=== PATIENT | female | born 1995 | race Caucasian/White ===

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

== ENCOUNTER 2017-01-13 13:00 | Outpatient (CLI) | payer BC, OTHER ==
[2017-01-13 14:13] VITALS: BP 108/63; PULSE 97; RESP 16; TEMP 98.2
--- NOTE | 2017-04-01 23:30 | P.MSEPDOC ---
Presenting Problems - Arrival Data Date of Arrival on Unit: 01/13/17 Time of Arrival on Unit: 13:00 Mode of Transport: Ambulatory Medical History - Information : 3 Para: 1 Term: 1 : 0 Abortions: Spontaneous or Elective: 1 Number of Living Children: 1 - Gestational Age Gestational Age by DANYEL (wks/days): 31 Weeks and 4 Days Vital Signs - Temperature Temperature: 98.2 F Temperature Source: Oral - Pulse Right Brachial Pulse Rate: 97 Pulse Assessment Method: Automatic Cuff - Respirations Respiratory Rate: 16 Oxygen Delivery Method: Room Air O2 Sat by Pulse Oximetry: 99 - Blood Pressure Right Arm Blood Pressure: 108/63 Blood Pressure Mean: 78 Blood Pressure Source: Automatic Cuff Medical Screen Scoring (Post) - Cervical Exam Dilation: 1-3 cm = 1 - Uterine Contractions Frequency: N/A Duration: N/A Intensity: N/A - Maternal Vital Signs Maternal Temperature: N/A Maternal Blood Pressure: N/A Signs of Preeclampsia: N/A Maternal Respirations: N/A - Pain Assessment Pain Scale Used: Numeric (1 - 10) Pain Intensity: 0 - Maternal Trauma Maternal Trauma: N/A - Assessment Heart Rate: 135 Heart Rate - NICHD Category: Category I (Normal) = 0 NST: Reactive Position: N/A - Total Score Total Score (Post): 1 - Post Treatment Level of Risk Post Treatment Level of Risk: Low (0-5) Physician Notification (Post) - Physician Notified Physician Notified Date: 01/13/17 Physician Notified Time: 13:45 Physician/Practitioner Notified:: denise Spoke With: denise New Order Received: Yes - Notification Comment Comment: reported pt visit to triage to r/o rom. amnisure negative, reactive nst , no contractions. pt may be discharged home . follow up thursday with dr horowitz as scheduled Disposition - Disposition OB Disposition: Discharge to home Discharge Date: 01/13/17 Discharge Time: 13:55 I agree with the RN Medical Screening Exam: Yes Risk & Benefit of care provided described in d/c instruction: Yes Diagnosis: FALSE LABOR BEFORE 37 COMPLETED WEEKS OF GEST, THIRD TRI
== END 2017-01-13 13:55 | disposition home or self-care (01) ==
LOC: FBPOP 13:00
PROVIDERS: ATTEND Obstetrics & Gynecology
DX: O47.03 False labor before 37 completed weeks of gestation, third trimester (principal); Z3A.31 31 weeks gestation of pregnancy
CPT/HCPCS: 59025; 84112; 99213

== ENCOUNTER 2017-01-29 17:57 | Outpatient (CLI) | payer BC, OTHER ==
[2017-01-29 18:54] VITALS: BP 133/63; PULSE 110; RESP 18; TEMP 97.5
--- NOTE | 2017-02-02 06:45 | P.MSEPDOC ---
Presenting Problems - Arrival Data Date of Arrival on Unit: 01/29/17 Time of Arrival on Unit: 17:57 Mode of Transport: Ambulatory - Complaint OB-Reason for Admission/Chief Complaint: Pain Comment: contractions and cramping Medical History - Information : 3 Para: 1 Term: 1 : 0 Abortions: Spontaneous or Elective: 1 Number of Living Children: 1 - Gestational Age Gestational Age by DANYEL (wks/days): 33 Weeks and 6 Days Review of Systems - Review of Systems Constitutional: No problems Breast: No problems ENT: No problems Cardiovascular: No problems Respiratory: No problems Gastrointestinal: No problems Genitourinary: No problems Musculoskeletal: No problems Neurological: No problems Skin: No problems Vital Signs - Temperature Temperature: 97.5 F Temperature Source: Temporal Artery Scan - Pulse Right Brachial Pulse Rate: 110 Pulse Assessment Method: Automatic Cuff - Respirations Respiratory Rate: 18 Oxygen Delivery Method: Room Air - Blood Pressure Right Arm Blood Pressure: 133/63 Blood Pressure Mean: 86 Blood Pressure Source: Automatic Cuff Medical Screen Scoring (Pre) - Cervical Exam Dilation: 1-3 cm = 1 Effacement: Exam Deferred Membranes: Intact - Uterine Contractions Frequency: N/A Duration: N/A Intensity: N/A - Maternal Vital Signs Maternal Temperature: N/A Maternal Blood Pressure: N/A Signs of Preeclampsia: N/A Maternal Respirations: N/A - Pain Assessment Pain Location and Character: Abdomen Pain Scale Used: Numeric (1 - 10) Pain Intensity: 4 Pain Description: *Acute Pain Radiation Location: none Pain Frequency: Intermittent Pain Duration: 2 Pain Duration Units: Days Pain Behavior: Vocalization - Maternal Trauma Maternal Trauma: N/A - Assessment Baseline FHR: 120 Heart Rate - NICHD Category: Category I (Normal) = 0 NST: Reactive Position: N/A Station: N/A - Total Score Total Score (Pre): 1 - Level of Risk Level of Risk: Low (0-5) Physician Notification (Pre) - Physician Notified Physician Notified Date: 01/29/17 Physician Notified Time: 19:34 Physician/Practitioner Notifed:: Dr. Humphries Spoke With: Dr. Humphries New Order Received: Yes - Notification Comment Comment: discharge pt home, follow up in office next week at scheduled appt Disposition - Disposition OB Disposition: Discharge to home, Written follow up instructions reviewed I agree with the RN Medical Screening Exam: Yes Risk & Benefit of care provided described in d/c instruction: Yes Diagnosis: FALSE LABOR BEFORE 37 COMPLETED WEEKS OF GEST, THIRD TRI
== END 2017-01-29 18:45 | disposition home or self-care (01) ==
LOC: FBPOP 17:57
PROVIDERS: ATTEND Obstetrics & Gynecology
DX: O47.03 False labor before 37 completed weeks of gestation, third trimester (principal); Z3A.33 33 weeks gestation of pregnancy
CPT/HCPCS: 59025; 99213

== ENCOUNTER 2017-02-26 08:01 | Outpatient (CLI) | payer BC, OTHER ==
[2017-02-26 09:17] VITALS: BP 113/65; PULSE 95; RESP 18; TEMP 97.6
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
== END 2017-02-26 09:15 | disposition home or self-care (01) ==
LOC: FBPOP 08:01
PROVIDERS: ATTEND Obstetrics & Gynecology
DX: O99.89 Other specified diseases and conditions complicating pregnancy, childbirth and the puerperium (principal); R52 Pain, unspecified; Z3A.37 37 weeks gestation of pregnancy
CPT/HCPCS: 59025; 99213

== ENCOUNTER 2017-03-03 23:04 | Outpatient (CLI) | payer BC, OTHER ==
[2017-03-03] MEDS ORDERED: LACTATED RINGERS 1,000 ML IV SCH (23:45)
[2017-03-04 00:22] LABS: Basophils % (A) 0 %; Eosinophils # (A) 0.1 k/uL (0-0.7); Eosinophils % (A) 1 %; HCT 32.5 % (34.0-46.0); HGB 10.1 gm/dL (11.4-16.0); Hypochromasia Moderate; Lymphocytes # (A) 1.3 k/uL (1.0-4.8); Lymphocytes % (A) 9 %; MCH 23.3 pg (25.0-35.0); MCHC 30.9 g/dL (31.0-37.0); MCV 75.4 fL (80.0-100.0); Mean Platelet Volume 9.2; Microcytosis Slight; Monocytes # (A) 0.7 k/uL (0-1.0); Monocytes % (A) 5 %; Neutrophils % (A) 84 %; Platelet Count 205 k/uL (150-450); Poikilocytosis Slight; RBC 4.31 m/uL (3.80-5.40); RDW 14.8 % (11.5-15.5); WBC 14.3 k/uL (4.0-11.0)
[2017-03-04 00:32] LABS: ALT 26 U/L (9-52); AST 20 U/L (14-36); Albumin 3.6 g/dL (3.5-5.0); Alkaline Phosphatase 239 U/L (38-126); Anion Gap 10 mmol/L; Blood Urea Nitrogen 5 mg/dL (7-17); Calcium 9.8 mg/dL (8.4-10.2); Carbon Dioxide 23 mmol/L (22-30); Chloride 105 mmol/L (98-107); Glucose 72 mg/dL (74-99); Potassium 3.7 mmol/L (3.5-5.1); Sodium 138 mmol/L (137-145); Total Bilirubin 0.6 mg/dL (0.2-1.3); Total Protein 6.3 g/dL (6.3-8.2)
[2017-03-04 02:25] VITALS: BP 131/70; PULSE 127; RESP 18; TEMP 98.2
--- NOTE | 2017-03-06 11:00 | P.MSEPDOC ---
Presenting Problems - Arrival Data Date of Arrival on Unit: 03/03/17 Time of Arrival on Unit: 23:04 Mode of Transport: Ambulatory - Complaint OB-Reason for Admission/Chief Complaint: Dizziness Comment: dizziness and R leg swelling Medical History - Information : 3 Para: 1 Term: 1 : 0 Abortions: Spontaneous or Elective: 1 Number of Living Children: 1 - Gestational Age Gestational Age by DANYEL (wks/days): 38 Weeks and 5 Days Review of Systems - Review of Systems Constitutional: No problems Breast: No problems ENT: No problems Cardiovascular: Irregular heartbeat Respiratory: No problems Gastrointestinal: No problems Genitourinary: No problems Musculoskeletal: No problems Neurological: Dizziness Skin: No problems Comment: tachycardic Vital Signs - Temperature Temperature: 98.2 F Temperature Source: Temporal Artery Scan - Pulse Right Supine Brachial Pulse Rate: 127 Pulse Assessment Method: Automatic Cuff - Respirations Respiratory Rate: 18 Oxygen Delivery Method: Room Air O2 Sat by Pulse Oximetry: 99 - Blood Pressure Right Arm Supine Blood Pressure: 131/70 Blood Pressure Mean: 90 Blood Pressure Source: Automatic Cuff Medical Screen Scoring (Pre) - Cervical Exam Dilation: 1-3 cm = 1 Membranes: Intact - Uterine Contractions Frequency: > or = 36 weeks =2 Duration: > 40 seconds = 2 - Pain Assessment Pain Location and Character: Abdomen Pain Scale Used: Numeric (1 - 10) Pain Intensity: 1 Pain Management Goal: 1 Pain Description: Cramping Pain Radiation Location: none Pain Frequency: Intermittent Pain Duration: 2 Pain Duration Units: Hours Pain Behavior: None Exhibited Effects of Pain: none Pain Aggravating Factors: Activity Non-Pharmacological Interventions: Inactivity - Assessment Baseline FHR: 135 Heart Rate - NICHD Category: Category I (Normal) = 0 NST: Reactive - Total Score Total Score (Pre): 5 - Level of Risk Level of Risk: Low (0-5) Physician Notification (Pre) - Physician Notified Physician Notified Date: 03/03/17 Physician Notified Time: 23:50 Physician/Practitioner Notifed:: Dr Siddiqui Spoke With: Dr Siddiqui New Order Received: Yes (Lab orders with IV and EKG) Physician Notification (Post) - Physician Notified Physician Notified Date: 03/04/17 Physician Notified Time: 01:35 Physician/Practitioner Notified:: Dr Siddiqui Spoke With: Dr Siddiqui New Order Received: Yes - Notification Comment Comment: Discharge to home Disposition - Disposition OB Disposition: Discharge to home Discharge Date: 03/04/17 Discharge Time: 01:35 I agree with the RN Medical Screening Exam: Yes Risk & Benefit of care provided described in d/c instruction: Yes Diagnosis: RELATED CONDITIONS, UNSPECIFIED, THIRD TRIMESTER (leg swelling)
== END 2017-03-04 01:35 | disposition home or self-care (01) ==
LOC: FBPOP 23:04
PROVIDERS: ATTEND Obstetrics & Gynecology
DX: O26.93 Pregnancy related conditions, unspecified, third trimester (principal); Z3A.38 38 weeks gestation of pregnancy
CPT/HCPCS: 59025; 80053; 84443; 85025; 96360; 96361; 99214

== ENCOUNTER → 2017-10-23 | Outpatient (CLI) | payer BC, OTHER ==
[2017-10-23 15:01] LABS: Basophils % (A) 0 %; Eosinophils # (A) 0.3 k/uL (0-0.7); Eosinophils % (A) 5 %; HCT 41.7 % (34.0-46.0); HGB 13.9 gm/dL (11.4-16.0); Lymphocytes # (A) 2.2 k/uL (1.0-4.8); Lymphocytes % (A) 32 %; MCH 27.2 pg (25.0-35.0); MCHC 33.4 g/dL (31.0-37.0); MCV 81.3 fL (80.0-100.0); Mean Platelet Volume 7.8; Monocytes # (A) 0.5 k/uL (0-1.0); Monocytes % (A) 6 %; Neutrophils # (A) 3.8 k/uL (1.3-7.7); Neutrophils % (A) 55 %; Platelet Count 217 k/uL (150-450); RBC 5.13 m/uL (3.80-5.40); RDW 12.8 % (11.5-15.5)
[2017-10-23 15:05] LABS: ALT 32 U/L (9-52); AST 22 U/L (14-36); Albumin 4.7 g/dL (3.5-5.0); Alkaline Phosphatase 76 U/L (38-126); Anion Gap 11 mmol/L; Blood Urea Nitrogen 13 mg/dL (7-17); Calcium 9.8 mg/dL (8.4-10.2); Carbon Dioxide 26 mmol/L (22-30); Chloride 105 mmol/L (98-107); Cholesterol 116 mg/dL (<200); Glucose 79 mg/dL (74-99); HDL Cholesterol 57 mg/dL (40-60); LDL Cholesterol,Calculated 51 mg/dL (0-99); Potassium 4.2 mmol/L (3.5-5.1); Sodium 142 mmol/L (137-145); Total Bilirubin 0.9 mg/dL (0.2-1.3); Total Protein 7.4 g/dL (6.3-8.2); Triglycerides 39 mg/dL (<150)
== END | disposition home or self-care (01) ==
LOC: LABWHC1 14:32
DX: Z00.00 Encounter for general adult medical examination without abnormal findings (principal)
CPT/HCPCS: 36415; 80053; 80061; 82306; 84443; 85025

== ENCOUNTER → 2018-01-22 | Outpatient (CLI) | payer BC, OTHER ==
[2018-01-22 15:27] LABS: Basophils % (A) 0 %; Eosinophils # (A) 0.3 k/uL (0-0.7); Eosinophils % (A) 5 %; HGB 12.7 gm/dL (11.4-16.0); Lymphocytes # (A) 2.1 k/uL (1.0-4.8); Lymphocytes % (A) 31 %; MCH 28.8 pg (25.0-35.0); MCHC 34.4 g/dL (31.0-37.0); MCV 83.6 fL (80.0-100.0); Mean Platelet Volume 8.9; Monocytes # (A) 0.5 k/uL (0-1.0); Monocytes % (A) 7 %; Neutrophils # (A) 3.8 k/uL (1.3-7.7); Neutrophils % (A) 55 %; Platelet Count 204 k/uL (150-450); RBC 4.42 m/uL (3.80-5.40); WBC 6.9 k/uL (4.0-11.0)
== END ==
LOC: LABWHC1 15:10
PROVIDERS: ATTEND Dermatology
DX: L30.9 Dermatitis, unspecified (principal)
CPT/HCPCS: 36415; 85025

== ENCOUNTER 2018-02-21 04:55 | Emergency (ER) | payer BC, OTHER ==
--- NOTE | 2018-02-21 06:18 | ED ---
General Adult HPI - General Chief complaint: Extremity Problem,Nontraumatic Stated complaint: rt arm numbness Time Seen by Provider: 02/21/18 06:03 Source: patient, RN notes reviewed Mode of arrival: ambulatory Limitations: no limitations - History of Present Illness Initial comments: This a 22-year-old female presents emergency Department chief complaint of right arm numbness and tingling. Patient states that she thought it was just the way she was holding her baby while nursing but states that did not resolve after a few hours after positional changes. She states she became worried and noticed that she had right leg numbness. Patient states that resolved very quickly. Patient does admit that recently she's had issues with anxiety but felt that this wasn't related to anxiety. Patient states that she has 11 month old at home along with a 2-year-old. Patient states that she's felt stressed and felt more fatigued than usual. Patient's concerned that she may have some thyroid dysfunction. Patient states that she gets tired more often than usual. She denies any current chest pain shortness breath. Patient has no abdominal pain she has had some abdominal pain recent past. Patient denies any headache, blurred vision, focal weakness, difficulty walking. - Related Data Home Medications Medication Instructions Recorded Confirmed No Known Home Medications 02/21/18 02/21/18 Allergies Allergy/AdvReac Type Severity Reaction Status Date / Time Penicillins Allergy Rash/Hives Verified 03/06/17 06:16 Review of Systems ROS Statement: Those systems with pertinent positive or pertinent negative responses have been documented in the HPI. ROS Other: All systems not noted in ROS Statement are negative. Past Medical History Past Medical History: No Reported History Additional Past Medical History / Comment(s): Obstetric history: first was an elective termination. Second she had a vaginal delivery with a shoulder dystocia of a 5#9oz baby. This is her third and she has had care with me since the first trimester. O+, abs neg, Rub Imm, Treponemal ab neg, HIV Nr, GBS+. History of Any Multi-Drug Resistant Organisms: None Reported Past Surgical History: Adenoidectomy, Ear Surgery, Tonsillectomy Past Anesthesia/Blood Transfusion Reactions: No Reported Reaction Past Psychological History: No Psychological Hx Reported Smoking Status: Current some day smoker Past Alcohol Use History: Rare Past Drug Use History: Marijuana - Past Family History Mother Family Medical History: No Reported History General Exam Limitations: no limitations General appearance: alert, in no apparent distress, anxious Head exam: Present: atraumatic, normocephalic, normal inspection Eye exam: Present: normal appearance, PERRL, EOMI. Absent: scleral icterus, conjunctival injection, periorbital swelling ENT exam: Present: normal exam, normal oropharynx, mucous membranes moist Neck exam: Present: normal inspection, full ROM. Absent: tenderness, meningismus, lymphadenopathy Respiratory exam: Present: normal lung sounds bilaterally. Absent: respiratory distress, wheezes, rales, rhonchi, stridor Cardiovascular Exam: Present: normal rhythm, tachycardia, normal heart sounds. Absent: systolic murmur, diastolic murmur, rubs, gallop, clicks GI/Abdominal exam: Present: soft, normal bowel sounds. Absent: distended, tenderness, guarding, rebound, rigid Extremities exam: Present: normal inspection, full ROM, normal capillary refill. Absent: tenderness, pedal edema, joint swelling, calf tenderness Neurological exam: Present: alert, oriented X3, CN II-XII intact, reflexes normal, other (Finger to nose intact bilaterally without overshooting). Absent : motor sensory deficit Skin exam: Present: warm, dry, intact, normal color. Absent: rash Course Vital Signs 02/21/18 02/21/18 05:01 07:50 Temperature 98.3 F 98.0 F Pulse Rate 114 H 95 Respiratory 20 18 Rate Blood Pressure 114/70 115/70 O2 Sat by Pulse 99 99 Oximetry Medical Decision Making - Medical Decision Making 22-year-old female presented for extremity paresthesias. Patient did have lab work to check for any left-sided imbalances which are negative at this time. Patient symptoms may be related to anxiety. She states that she's had increasing anxiety issues has been trying some [id number] remedies. Patient will follow-up PCP. Patient has no deficits time her symptoms have completely resolved. - Lab Data Result diagrams: 02/21/18 05:20 02/21/18 05:20 Lab Results 02/21/18 02/21/18 Range/Units 05:20 05:20 WBC 8.2 (4.0-11.0) k/uL RBC 5.11 (3.80-5.40) m/uL Hgb 14.7 (11.4-16.0) gm/dL Hct 42.7 (34.0-46.0) % MCV 83.6 (80.0-100.0) fL MCH 28.7 (25.0-35.0) pg MCHC 34.4 (31.0-37.0) g/dL RDW 13.0 (11.5-15.5) % Plt Count 198 (150-450) k/uL Neutrophils % 52 % Lymphocytes % 36 % Monocytes % 7 % Eosinophils % 3 % Basophils % 0 % Neutrophils # 4.2 (1.3-7.7) k/uL Lymphocytes # 3.0 (1.0-4.8) k/uL Monocytes # 0.6 (0-1.0) k/uL Eosinophils # 0.2 (0-0.7) k/uL Basophils # 0.0 (0-0.2) k/uL Sodium 144 (137-145) mmol/L Potassium 3.9 (3.5-5.1) mmol/L Chloride 108 H (98-107) mmol/L Carbon Dioxide 25 (22-30) mmol/L Anion Gap 11 mmol/L BUN 12 (7-17) mg/dL Creatinine 0.53 (0.52-1.04) mg/dL Est GFR (CKD-EPI)AfAm >90 (>60 ml/min/1.73 sqM) Est GFR (CKD-EPI)NonAf >90 (>60 ml/min/1.73 sqM) Glucose 83 (74-99) mg/dL Calcium 10.0 (8.4-10.2) mg/dL Magnesium 1.9 (1.6-2.3) mg/dL Total Bilirubin 0.6 (0.2-1.3) mg/dL AST 22 (14-36) U/L ALT 21 (9-52) U/L Alkaline Phosphatase 72 (38-126) U/L Total Protein 7.5 (6.3-8.2) g/dL Albumin 4.6 (3.5-5.0) g/dL Disposition Clinical Impression: Arm paresthesia, right, Anxiety Disposition: HOME SELF-CARE Condition: Stable Instructions: Paresthesia (ED) Additional Instructions: Please return to the Emergency Department if symptoms worsen or any other concerns. Is patient prescribed a controlled substance at d/c from ED?: No Referrals: Kenyon Trores MD [Primary Care Provider] - 1-2 days Time of Disposition: 08:19
[2018-02-21 07:13] LABS: Basophils % (A) 0 %; Eosinophils # (A) 0.2 k/uL (0-0.7); Eosinophils % (A) 3 %; HCT 42.7 % (34.0-46.0); HGB 14.7 gm/dL (11.4-16.0); Lymphocytes % (A) 36 %; MCH 28.7 pg (25.0-35.0); MCHC 34.4 g/dL (31.0-37.0); MCV 83.6 fL (80.0-100.0); Mean Platelet Volume 8.2; Monocytes # (A) 0.6 k/uL (0-1.0); Monocytes % (A) 7 %; Neutrophils # (A) 4.2 k/uL (1.3-7.7); Neutrophils % (A) 52 %; Platelet Count 198 k/uL (150-450); RBC 5.11 m/uL (3.80-5.40); WBC 8.2 k/uL (4.0-11.0)
[2018-02-21 07:51] LABS: ALT 21 U/L (9-52); AST 22 U/L (14-36); Albumin 4.6 g/dL (3.5-5.0); Alkaline Phosphatase 72 U/L (38-126); Anion Gap 11 mmol/L; Blood Urea Nitrogen 12 mg/dL (7-17); Carbon Dioxide 25 mmol/L (22-30); Chloride 108 mmol/L (98-107); Glucose 83 mg/dL (74-99); Magnesium 1.9 mg/dL (1.6-2.3); Potassium 3.9 mmol/L (3.5-5.1); Sodium 144 mmol/L (137-145); Total Bilirubin 0.6 mg/dL (0.2-1.3); Total Protein 7.5 g/dL (6.3-8.2)
[2018-02-21 07:52] VITALS: RESP 18
[2018-02-21 09:04] VITALS: BP 93/59; PULSE 70; TEMP 98.3
== END 2018-02-21 09:04 | disposition home or self-care (01) ==
LOC: EC 04:55
DX: F41.9 Anxiety disorder, unspecified (principal); R20.2 Paresthesia of skin; R00.0 Tachycardia, unspecified; R20.0 Anesthesia of skin; F17.200 Nicotine dependence, unspecified, uncomplicated; Z88.0 Allergy status to penicillin
CPT/HCPCS: 36415; 80053; 83735; 84443; 85025; 99284

== ENCOUNTER → 2018-05-21 | Outpatient (CLI) | payer BC, OTHER | LOC: LABWHC1 05-20 16:18 | PROVIDERS: ATTEND Obstetrics & Gynecology | DX: Z34.80 Encounter for supervision of other normal pregnancy, unspecified trimester (principal); Z3A.00 Weeks of gestation of pregnancy not specified | CPT/HCPCS: 36415; 84702 ==

== ENCOUNTER → 2018-06-17 | Outpatient (CLI) | payer BC, OTHER | END | disposition home or self-care (01) | LOC: LABWHC1 09:23 | PROVIDERS: ATTEND Obstetrics & Gynecology | DX: Z34.80 Encounter for supervision of other normal pregnancy, unspecified trimester (principal) | CPT/HCPCS: 36415; 84702 ==

== ENCOUNTER 2018-08-01 19:56 | Emergency (ER) | payer BC, OTHER ==
--- NOTE | 2018-08-01 20:33 | ED ---
Abdominal Pain HPI - General Chief Complaint: Abdominal Pain Stated Complaint: Urogenital Time Seen by Provider: 08/01/18 20:25 Source: patient Mode of arrival: ambulatory Limitations: no limitations - History of Present Illness Initial Comments: 13 week female presenting with lower abdominal cramping and urinary frequency and hesitancy. Patient states she was seen in urgent care and a UA was done and she was told it was negative. She states she has a history of a subchorionic bleed found on an ultrasound on July 05. She denies any vaginal discharge or vaginal bleeding. Denies any fevers chills, nausea vomiting, diarrhea. She states that she feels like she is having bladder pressure, and has to position her body is certainly to be able to urinate. She denies any pain within her vagina but says she just feels as if her urethra is burning. - Related Data Home Medications Medication Instructions Recorded Confirmed No Known Home Medications 02/21/18 02/21/18 Allergies Allergy/AdvReac Type Severity Reaction Status Date / Time Penicillins Allergy Rash/Hives Verified 02/21/18 08:22 monastat AdvReac Itching Uncoded 08/01/18 20:04 Review of Systems ROS Statement: Those systems with pertinent positive or pertinent negative responses have been documented in the HPI. Review of Systems Constitutional: Denies fever, chills Eyes: Denies change in vision, Denies pain Ears, nose, mouth, throat: Denies headaches, Denies sore throat Cardiovascular: Denies chest pain. Denies palpitations Respiratory: Denies shortness of breath, Denies cough Gastrointestinal: Positive abdominal pain. Denies nausea, vomiting, diarrhea. Genitourinary: Denies hematuria, Denies infections. Positive dysuria Musculoskeletal: Denies pain, Denies swelling Integumentary: Denies rash Neurological: Denies headache, focal weakness, focal numbness Psychiatric: Denies anxiety, Denies depression Hematologic/Lymphatic: Denies easy bleeding or bruising ROS Other: All systems not noted in ROS Statement are negative. Past Medical History Past Medical History: No Reported History Additional Past Medical History / Comment(s): Obstetric history: first was an elective termination. Second she had a vaginal delivery with a shoulder dystocia of a 5#9oz baby. This is her third and she has had care with me since the first trimester. O+, abs neg, Rub Imm, Treponemal ab neg, HIV Nr, GBS+. History of Any Multi-Drug Resistant Organisms: None Reported Past Surgical History: Adenoidectomy, Ear Surgery, Tonsillectomy Past Anesthesia/Blood Transfusion Reactions: No Reported Reaction Past Psychological History: No Psychological Hx Reported Smoking Status: Current some day smoker Past Alcohol Use History: Rare Past Drug Use History: Marijuana - Past Family History Mother Family Medical History: No Reported History General Exam - General Exam Comments Initial Comments: General: Awake, alert, No acute Distress HENT: Normocephalic. Atraumatic Eyes: PERRL. EOMI. No scleral icterus. No injected conjunctiva Neck: Full ROM Chest/Lungs: Clear to auscultation bilaterally. No wheezing, rhonchi, or rales Cardiac: Regular rate, rhythm. No murmurs or rubs Abdomen/GI: Soft, nontender, nondistended. No rebound, guarding, or rigidity. Musculoskeletal: Full ROM Skin: Warm, dry, intact Neurologic: A/Ox3, no weakness, no sensory deficit, no abnormal gait, no coordination deficit Limitations: no limitations Course Vital Signs 08/01/18 08/01/18 08/01/18 20:00 21:39 22:35 Temperature 98.5 F 98.3 F Pulse Rate 93 78 Respiratory 20 16 16 Rate Blood Pressure 106/73 117/65 O2 Sat by Pulse 99 99 Oximetry Medical Decision Making - Medical Decision Making 23-year-old female presenting with urinary frequency and abdominal cramping. Patient's UA was negative here. She denied any concern for ST eyes and declines testing. she declined tylenol for pain. She had no right lower quadrant tenderness to warrant an appendicitis workup. Transvaginal ultrasound showed a 13 week fetus with heart tones in the 160s and it no longer had a subchorionic bleed seen on previous ultrasounds. She is not having any vaginal bleeding. At this time no further emergent workup indicated. She was instructed to return to the emergency department should her symptoms worsen. Otherwise she was instructed to follow up with her OBGYN on Thursday. The patient was given return to ED instructions. They were instructed to follow up with their primary care provider. Stable for discharge at this time. - Lab Data Lab Results 08/01/18 Range/Units 21:02 Urine Color Light Yellow Urine Appearance Cloudy H (Clear) Urine pH 7.0 (5.0-8.0) Ur Specific [place] 1.014 (1.001-1.035) Urine Protein Negative (Negative) Urine Glucose (UA) Negative (Negative) Urine Ketones Negative (Negative) Urine Blood Negative (Negative) Urine Nitrite Negative (Negative) Urine Bilirubin Negative (Negative) Urine Urobilinogen <2.0 (<2.0) mg/dL Ur Leukocyte Esterase Negative (Negative) Urine RBC 3 (0-5) /hpf Ur Squamous Epith Cells 2 (0-4) /hpf Amorphous Sediment Moderate H (None) /hpf Disposition Clinical Impression: Urinary frequency, Abdominal pain Disposition: HOME SELF-CARE Condition: Poor Instructions (If sedation given, give patient instructions): Dysuria (ED), Abdominal Pain in (ED), Urinary Urgency and Frequency (DC) Additional Instructions: Call your OBGYN for follow up on Thursday Is patient prescribed a controlled substance at d/c from ED?: No Referrals: Kenyon Torres MD [Primary Care Provider] - 1-2 days
--- NOTE | 2018-08-01 21:27 | US ---
EXAMINATION TYPE: Transabdominal DATE OF EXAM: 08/01/2018 9:11 PM COMPARISON: NONE CLINICAL HISTORY: Pain. Lower abdominal pain EXAM PERFORMED: Transabdominal (TA) EXAM MEASUREMENTS: GESTATIONAL AGE / DATING Physician Established: (13 weeks/4 days) EDC: 02/02/2019 Dates by LMP: (13 weeks/4 days) EDC: 02/02/2019 Dates by First Scan: No previous this is first scan Dates by Current Scan for: (13 weeks/1 days) EDC: 02/05/2019 MATERNAL ANATOMY Uterus: 13.1 x 7.5 x 9.6 cm Right Ovary: 3.0 x 1.1 x 2.5 cm Left Ovary: 3.2 x 1.8 x 2.2 cm Post CDS / Adnexa: wnl Presence of free fluid: No Presence of corpus luteal cyst: No Presence of subchorionic bleed: NO GESTATION / SURVEY CRL: 6.9 cm (13 weeks/1 days) Heart Rate: 161 bpm Rhythm: Normal IUP: Viable IUP Date of LMP: 04/28/2018 Beta HcG (if available): Not available at this time Viable IUP, measurements consistent with dates IMPRESSION: Single intrauterine gestation estimated at 13 weeks 1 day gestation based on the crown-rump length. C ardiac activity measures 161 bpm.
[2018-08-01 21:28] LABS: Amorphous Sediment,Urine Moderate /hpf; Appearance,Urine Cloudy (Clear); Bilirubin,Urine Negative (Negative); Blood,Urine Negative (Negative); Color,Urine Light Yellow; Glucose,Urine (UA) Negative (Negative); Ketones,Urine Negative (Negative); Leukocyte Esterase,Urine Negative (Negative); Nitrite,Urine Negative (Negative); Protein,Urine Negative (Negative); RBC,Urine 3 /hpf (0-5); Specific Gravity,Urine 1.014 (1.001-1.035); Squamous Epithelial Cell,Urine 2 /hpf (0-4); Urobilinogen,Urine <2.0 mg/dL (<2.0)
[2018-08-01 21:42] VITALS: RESP 16
[2018-08-01 22:39] VITALS: BP 117/65; PULSE 78; TEMP 98.3
== END 2018-08-01 22:35 | disposition home or self-care (01) ==
LOC: EC 19:56
DX: O99.89 Other specified diseases and conditions complicating pregnancy, childbirth and the puerperium (principal); R35.0 Frequency of micturition; R10.30 Lower abdominal pain, unspecified; O99.331 Smoking (tobacco) complicating pregnancy, first trimester; F17.200 Nicotine dependence, unspecified, uncomplicated; Z3A.13 13 weeks gestation of pregnancy; Z88.0 Allergy status to penicillin; Z88.8 Allergy status to other drugs, medicaments and biological substances
CPT/HCPCS: 76801; 81001; 99284

== ENCOUNTER 2018-09-08 22:59 | Emergency (ER) | payer BC, OTHER ==
[2018-09-08 23:13] VITALS: TEMP 98.4
[2018-09-09 00:45] LABS: Appearance,Urine Clear (Clear); Bilirubin,Urine Negative (Negative); Blood,Urine Negative (Negative); Color,Urine Light Yellow; Glucose,Urine (UA) Negative (Negative); Ketones,Urine 3+ (Negative); Leukocyte Esterase,Urine Negative (Negative); Nitrite,Urine Negative (Negative); PH, Urine 6.5 (5.0-8.0); Protein,Urine Negative (Negative); Specific Gravity,Urine 1.009 (1.001-1.035); Urobilinogen,Urine <2.0 mg/dL (<2.0)
[2018-09-09 00:52] LABS: Amphetamine Screen,Urine Not Detected (NotDetected); Barbiturate Screen,Urine Not Detected (NotDetected); Benzodiazepines Screen,Urine Not Detected (NotDetected); Cocaine Screen,Urine Not Detected (NotDetected); Methadone Screen, Urine Not Detected (NotDetected); Opiate Screen,Urine Not Detected (NotDetected); Oxycodone Screen, Urine Not Detected (NotDetected); Phencyclidine Screen,Urine Not Detected (NotDetected); Tricyclic Antidepressant,Urine Not Detected (NotDetected); Urn Cannabinoid Scrn Not Detected (NotDetected)
--- NOTE | 2018-09-09 01:23 | ED ---
Anxiety HPI - General Chief Complaint: Anxiety Stated Complaint: Panic Attacks Time Seen by Provider: 09/08/18 23:17 Source: patient Mode of arrival: ambulatory - History of Present Illness Initial Comments: 23-year-old female patient presents to the emergency department today for evaluation of anxiety and panic attacks. Patient states over the last 2-3 days she's been experiencing frequent panic attacks and increased anxiety. Patient states she constantly feels like there is a weight on her chest and she has racing thoughts. Patient states that her thoughts are overwhelming and intrusive. States that she is unable to eat, sleep, or perform her usual activities without significant distress. Patient denies any suicidal or homicidal ideation. She does report feeling fearful that she will get to the point of being suicidal if her symptoms aren't relieved soon. Patient is 19 weeks . States she has been having some complications with the which contributes to the anxiety. States that her daughter did have a visit to the emergency department which contributed as well. Patient states she does have a history of anxiety. States that her physician did want to start her on Lexapro however she was breast-feeding and then became so was unable to start the medication. She denies ever having been on medication for this before. Patient denies any recent rash, fever, chills, shortness breath, chest pain, abdominal pain, diarrhea, constipation, back pain, numbness, tingling, dizziness, weakness, hematuria, dysuria, urinary urgency, urinary frequency, headache, visual changes, or any other complaints. - Related Data Home Medications: Home Medications Medication Instructions Recorded Confirmed Lyg-Rmvj-Ncjat Acid 1 cap PO DAILY 09/08/18 09/08/18 [-U Capsule (formulary)] Allergies/Adverse Reactions: Allergies Allergy/AdvReac Type Severity Reaction Status Date / Time azithromycin Allergy Unknown Verified 09/08/18 23:32 Penicillins Allergy Rash/Hives Verified 09/08/18 23:32 Milk Containing Products AdvReac Nausea & Verified 09/08/18 23:32 [Dairy] Vomiting & Diarrhea monastat AdvReac Itching Uncoded 09/08/18 23:14 Review of Systems ROS Statement: Those systems with pertinent positive or pertinent negative responses have been documented in the HPI. ROS Other: All systems not noted in ROS Statement are negative. Past Medical History Past Medical History: No Reported History Additional Past Medical History / Comment(s): Obstetric history: first was an elective termination. Second she had a vaginal delivery with a shoulder dystocia of a 5#9oz baby. This is her third and she has had care with me since the first trimester. O+, abs neg, Rub Imm, Treponemal ab neg, HIV Nr, GBS+. History of Any Multi-Drug Resistant Organisms: None Reported Past Surgical History: Adenoidectomy, Section, Ear Surgery, Tonsillectomy Past Anesthesia/Blood Transfusion Reactions: No Reported Reaction Past Psychological History: No Psychological Hx Reported Smoking Status: Former smoker Past Alcohol Use History: Rare Past Drug Use History: None Reported, Marijuana - Past Family History Mother Family Medical History: No Reported History General Exam Limitations: no limitations General appearance: alert, in no apparent distress, other (Physical well- developed, well-nourished adult female patient in mild distress related to anxiety. Vital signs upon presentation are temperature 98.4F, pulse 125, respirations 18, blood pressure 116/78, pulse ox 99% on room air.) Eye exam: Present: normal appearance, PERRL, EOMI. Absent: scleral icterus, conjunctival injection, periorbital swelling ENT exam: Present: normal exam, normal oropharynx, mucous membranes moist Respiratory exam: Present: normal lung sounds bilaterally. Absent: respiratory distress, wheezes, rales, rhonchi, stridor Cardiovascular Exam: Present: normal rhythm, tachycardia, normal heart sounds. Absent: systolic murmur, diastolic murmur, rubs, gallop, clicks GI/Abdominal exam: Present: soft, normal bowel sounds. Absent: distended, tende rness, guarding, rebound, rigid Neurological exam: Present: alert, oriented X3, CN II-XII intact Psychiatric exam: Present: normal mood, anxious, other (Tearful). Absent: normal affect, homicidal ideation, suicidal ideation Skin exam: Present: warm, dry, intact, normal color. Absent: rash Course Vital Signs 09/08/18 23:11 Temperature 98.4 F Pulse Rate 125 H Respiratory 18 Rate Blood Pressure 116/78 O2 Sat by Pulse 99 Oximetry Medical Decision Making - Medical Decision Making 23-year-old female patient presents to the emergency department today for evaluation of increased anxiety and panic attacks. Physical examination is unremarkable. Patient is 19 weeks . Denies any abdominal pain, abnormal vaginal bleeding, or abnormal discharge. Denies any concerns with the at this time. Urinalysis unremarkable. Drug screen negative. Patient was cleared medically and evaluated by emergency psychiatric services. She was seen and evaluated, salt that she is safe for discharge home. We did discuss outpatient referrals as well as resources to use to help with anxiety. She is instructed to follow-up with the primary care physician for recheck in 1- 2 days which is instructed to follow-up with [facility] for recheck as soon as possible. She does feel comfortable being discharged home at this time. Return parameters discussed in detail. She verbalizes understanding and agrees with this plan. - Lab Data Lab Results 09/09/18 Range/Units 00:26 Urine Color Light Yellow Urine Appearance Clear (Clear) Urine pH 6.5 (5.0-8.0) Ur Specific [place] 1.009 (1.001-1.035) Urine Protein Negative (Negative) Urine Glucose (UA) Negative (Negative) Urine Ketones 3+ H (Negative) Urine Blood Negative (Negative) Urine Nitrite Negative (Negative) Urine Bilirubin Negative (Negative) Urine Urobilinogen <2.0 (<2.0) mg/dL Ur Leukocyte Esterase Negative (Negative) Urine Opiates Screen Not Detected (NotDetected) Ur Oxycodone Screen Not Detected (NotDetected) Urine Methadone Screen Not Detected (NotDetected) Ur Propoxyphene Screen Not Detected (NotDetected) Ur Barbiturates Screen Not Detected (NotDetected) U Tricyclic Antidepress Not Detected (NotDetected) Ur Phencyclidine Scrn Not Detected (NotDetected) Ur Amphetamines Screen Not Detected (NotDetected) U Methamphetamines Scrn Not Detected (NotDetected) U Benzodiazepines Scrn Not Detected (NotDetected) Urine Cocaine Screen Not Detected (NotDetected) U Marijuana (THC) Screen Not Detected (NotDetected) Disposition Clinical Impression: Anxiety Disposition: HOME SELF-CARE Condition: Good Instructions (If sedation given, give patient instructions): Anxiety (ED), Panic Attack (ED) Additional Instructions: Utilize measures for anxiety reduction as discussed. Follow up with your primary care physician and your OBGYN for recheck as soon as possible. Return to the emergency department for any new, worsening, or concerning symptoms. Is patient prescribed a controlled substance at d/c from ED?: No Referrals: None,Stated [Primary Care Provider] - 1-2 days Time of Disposition: 02:40
[2018-09-09 02:50] VITALS: BP 120/66; PULSE 70; RESP 16
== END 2018-09-09 02:50 | disposition home or self-care (01) ==
LOC: EC 22:59
DX: O99.342 Other mental disorders complicating pregnancy, second trimester (principal); F41.9 Anxiety disorder, unspecified; Z87.891 Personal history of nicotine dependence; Z88.0 Allergy status to penicillin; Z88.1 Allergy status to other antibiotic agents; Z91.011 Allergy to milk products; Z98.890 Other specified postprocedural states; Z3A.19 19 weeks gestation of pregnancy
CPT/HCPCS: 80306; 81003; 82075; 99283

== ENCOUNTER → 2018-10-14 | Outpatient (CLI) | payer OTHER ==
[2018-10-14 14:48] LABS: HCT 34.6 % (34.0-46.0); HGB 11.6 gm/dL (11.4-16.0); MCH 27.6 pg (25.0-35.0); MCHC 33.5 g/dL (31.0-37.0); MCV 82.5 fL (80.0-100.0); Mean Platelet Volume 7.9; Platelet Count 192 k/uL (150-450); RBC 4.19 m/uL (3.80-5.40); RDW 13.1 % (11.5-15.5); WBC 12.4 k/uL (3.8-10.6)
== END | disposition home or self-care (01) ==
LOC: LABWHC1 13:00
PROVIDERS: ATTEND Obstetrics & Gynecology
DX: Z34.82 Encounter for supervision of other normal pregnancy, second trimester (principal)
CPT/HCPCS: 36415; 82950; 85027

== ENCOUNTER → 2018-10-18 | Outpatient (CLI) | payer OTHER ==
[2018-10-18 12:24] LABS: Glucose 3 Hour, Gest 66 mg/dL
== END ==
LOC: LABWHC1 08:19
PROVIDERS: ATTEND Obstetrics & Gynecology
DX: O99.810 Abnormal glucose complicating pregnancy (principal); Z3A.00 Weeks of gestation of pregnancy not specified
CPT/HCPCS: 36415; 82951; 82952

== ENCOUNTER 2018-10-31 13:38 | Outpatient (CLI) | payer OTHER ==
[2018-10-31 14:07] VITALS: BP 117/66; PULSE 107; RESP 14; TEMP 98.2
[2018-10-31 14:52] LABS: Amorphous Sediment,Urine Rare /hpf; Appearance,Urine Turbid (Clear); Bilirubin,Urine Negative (Negative); Blood,Urine Negative (Negative); Color,Urine Light Yellow; Glucose,Urine (UA) 1+ (Negative); Ketones,Urine Negative (Negative); Leukocyte Esterase,Urine Negative (Negative); Mucus,Urine Rare /hpf; Nitrite,Urine Negative (Negative); Protein,Urine Negative (Negative); RBC,Urine 3 /hpf (0-5); Squamous Epithelial Cell,Urine 1 /hpf (0-4); Urobilinogen,Urine <2.0 mg/dL (<2.0)
--- NOTE | 2018-11-10 07:48 | P.MSEPDOC ---
Presenting Problems - Arrival Data Date of Arrival on Unit: 10/31/18 Time of Arrival on Unit: 13:38 Mode of Transport: Ambulatory - Complaint OB-Reason for Admission/Chief Complaint: Other Comment: vaginal pressure, back pain, increased discharge Medical History - Information : 4 Para: 2 Term: 2 : 0 Abortions: Spontaneous or Elective: 1 Number of Living Children: 2 - Gestational Age Gestational Age by DANYEL (wks/days): 26 Weeks and 4 Days Review of Systems - Review of Systems Constitutional: No problems Breast: No problems ENT: No problems Cardiovascular: No problems Respiratory: No problems Gastrointestinal: No problems Genitourinary: No problems Musculoskeletal: No problems Neurological: No problems Skin: No problems Vital Signs - Temperature Temperature: 98.2 F Temperature Source: Oral - Pulse Right Brachial Pulse Rate: 107 Pulse Assessment Method: Automatic Cuff - Respirations Respiratory Rate: 14 Oxygen Delivery Method: Room Air - Blood Pressure Right Arm Blood Pressure: 117/66 Blood Pressure Mean: 83 Blood Pressure Source: Automatic Cuff Physician Notification (Post) - Physician Notified Physician Notified Date: 10/31/18 Physician Notified Time: 15:02 Physician/Practitioner Notified:: denise Spoke With: denise New Order Received: Yes - Notification Comment Comment: cutlure to be run off urine, pt can call office for results, pt can be discharged home Disposition - Disposition OB Disposition: Discharge to home Discharge Date: 10/31/18 Discharge Time: 15:12 I agree with the RN Medical Screening Exam: Yes Risk & Benefit of care provided described in d/c instruction: Yes Diagnosis: RELATED CONDITIONS, UNSPECIFIED, SECOND TRIMESTER
== END 2018-10-31 15:13 | disposition home or self-care (01) ==
LOC: FBPOP 13:38
PROVIDERS: ATTEND Obstetrics & Gynecology
DX: O26.92 Pregnancy related conditions, unspecified, second trimester (principal); Z3A.26 26 weeks gestation of pregnancy
CPT/HCPCS: 84112; 81001; 87086; G0463; 99213

== ENCOUNTER 2018-11-21 12:19 | Outpatient (CLI) | payer OTHER ==
[2018-11-21 12:33] VITALS: BP 116/58; PULSE 98; RESP 16; TEMP 98.3
--- NOTE | 2018-11-21 14:14 | US ---
EXAMINATION TYPE: US OB >= 14 wk fetus DATE OF EXAM: 11/21/2018 COMPARISON: US CLINICAL HISTORY: Complete OB ultrasound Patient stated daughter jumped on patient's abdomen and has pain at C section scar level; TECHNIQUE: Transabdominal (TA) GESTATIONAL AGE / DATING Physician Established: (29 weeks/4 days) EDC: 02/02/2019 Dates by LMP: (29 weeks/4 days) EDC: 02/02/2019 Dates by First Scan: (29 weeks/1 day) EDC: 02/05/2019 Dates by Current Scan: (28 weeks/ 2 days) EDC: 02/11/2019 Beta HCG (if available): na SURVEY IUP: Single PLACENTA: Posterior PREVIA: No Previa JACKELYN: 12.0 cm Normal CERVICAL LENGTH (transabdominal: norm > 3.0cm): 3.2 cm BIOMETRY PRESENTATION: CEPHALIC LIE: Longitudinal BPD: 7.2 cm 28 weeks / 6 days HC: 26.5 cm 28. weeks / 6 days AC: 23.3 cm 27. weeks / 5 days FL: 5.5 cm 29 weeks / 0 days ESTIMATED WEIGHT IN GRAMS: 1205.0 grams ESTIMATED WEIGHT IN LBS/OZ: 2 lbs. 11 oz. WEIGHT PERCENTAGE BASED ON ESTABLISHED DATES: 7.1% HC/AC: 1.13 Normal FL/AC: 23.52 Normal HEART RATE: 161 bpm RHYTHM: Normal Single, live IUP, 28 weeks/ 2 days, EDC: 02/11/2019 , HR 161bpm; no fluid is seen at patient's C se ction scar at area of pain; EFW is noted at less than 10.0%. IMPRESSION: STEPHENSON FETUS PRESENT IN A VERTEX LIE WITH A GESTATIONAL AGE OF 28 WEEKS 2 DAYS +/- 2 WEEKS. ESTIMA SHAMIR DATE CONFINEMENT BASED ON THIS EXAMINATION IS 02/11/2019. PLEASE NOTE THAT THE ESTIMATED KELLY GHT IS LESS THAN 10% OF PREDICTED NORMAL.
--- NOTE | 2018-11-22 06:54 | P.MSEPDOC ---
Presenting Problems - Arrival Data Date of Arrival on Unit: 11/21/18 Time of Arrival on Unit: 12:19 Mode of Transport: Portable - Complaint OB-Reason for Admission/Chief Complaint: Pain Comment: Patient states her 20 month old daughter jumped on her abdomen at the site of her old c/section scar at approximately 0830 this am, states she has a sharp pain in her abdomen, unrelated to contraction like pain. states that the pain is tender to touch and gaurds her abdomen with palpation. Medical History - Information : 4 Para: 2 Term: 2 : 0 Abortions: Spontaneous or Elective: 1 Number of Living Children: 2 - Gestational Age Gestational Age by DANYEL (wks/days): 29 Weeks and 4 Days Review of Systems - Review of Systems Constitutional: No problems Breast: No problems ENT: No problems Cardiovascular: No problems Respiratory: No problems Gastrointestinal: No problems Genitourinary: No problems Musculoskeletal: No problems Neurological: No problems Skin: No problems Vital Signs - Temperature Temperature: 98.3 F Temperature Source: Temporal Artery Scan - Pulse Pulse Oximetery Pulse Rate: 98 Pulse Assessment Method: Automatic Cuff - Respirations Respiratory Rate: 16 Oxygen Delivery Method: Room Air O2 Sat by Pulse Oximetry: 100 - Blood Pressure Sitting Blood Pressure: 116/58 Blood Pressure Mean: 77 Blood Pressure Source: Automatic Cuff Medical Screen Scoring (Pre) - Cervical Exam Dilation: Exam Deferred Effacement: Exam Deferred Membranes: Intact - Uterine Contractions Frequency: N/A Duration: N/A Intensity: N/A - Maternal Vital Signs Maternal Temperature: N/A Maternal Blood Pressure: N/A Signs of Preeclampsia: N/A - Maternal Trauma Maternal Trauma: N/A - Assessment - Baby A Baseline FHR: 140 Heart Rate - NICHD Category: Category I (Normal) = 0 NST: Reactive Position: N/A Station: N/A - Total Score - Baby A Total Score - Baby A: 0 - Total Score - Baby B Total Score - Baby B: 0 - Total Score - Baby C Total Score - Baby C: 0 - Level of Risk - Baby A Level of Risk - Baby A: Low (0-5) - Level of Risk - Baby B Level of Risk - Baby B: Low (0-5) - Level of Risk - Baby C Level of Risk - Baby C: Low (0-5) Physician Notification (Pre) - Physician Notified Physician Notified Date: 11/21/18 Physician Notified Time: 12:41 Physician/Practitioner Notifed:: Dr. Humphries New Order Received: Yes - Notification Comment Comment: Order a complete ob u/s and check cervix, call physician with u/s results. Disposition - Disposition Discharge Date: 11/21/18 Discharge Time: 14:20 I agree with the RN Medical Screening Exam: Yes Risk & Benefit of care provided described in d/c instruction: Yes Diagnosis: ACUTE PAIN DUE TO TRAUMA (Complete evaluation including pelvic exam and obstetrical ultrasound showed no evidence of maternal compromise. Patient's follow-up this week with Dr. Boucher.)
== END 2018-11-21 14:20 | disposition home or self-care (01) ==
LOC: FBPOP 12:19
PROVIDERS: ATTEND Obstetrics & Gynecology
DX: O99.89 Other specified diseases and conditions complicating pregnancy, childbirth and the puerperium (principal); G89.11 Acute pain due to trauma; F45.42 Pain disorder with related psychological factors; Z3A.29 29 weeks gestation of pregnancy
CPT/HCPCS: 59025; 76805; G0463; 99213

== ENCOUNTER 2018-12-24 13:40 | Outpatient (CLI) | payer OTHER ==
[2018-12-24 14:53] VITALS: BP 122/64; PULSE 102; RESP 14; TEMP 98.1
--- NOTE | 2019-01-05 08:24 | P.MSEPDOC ---
Presenting Problems - Arrival Data Date of Arrival on Unit: 12/24/18 Time of Arrival on Unit: 13:41 Mode of Transport: Ambulatory - Complaint OB-Reason for Admission/Chief Complaint: Rule Out PROM Comment: reports leaking x2 days Medical History - Information : 4 Para: 2 Term: 2 : 0 Abortions: Spontaneous or Elective: 1 Number of Living Children: 2 - Gestational Age Gestational Age by DANYEL (wks/days): 34 Weeks and 2 Days Review of Systems - Review of Systems Constitutional: No problems Breast: No problems ENT: No problems Cardiovascular: No problems Gastrointestinal: No problems Genitourinary: No problems Musculoskeletal: No problems Neurological: No problems Skin: No problems Vital Signs - Temperature Temperature: 98.1 F Temperature Source: Oral - Pulse Right Brachial Pulse Rate: 102 Pulse Assessment Method: Automatic Cuff - Respirations Respiratory Rate: 14 Oxygen Delivery Method: Room Air - Blood Pressure Right Arm Blood Pressure: 122/64 Blood Pressure Mean: 83 Blood Pressure Source: Automatic Cuff Medical Screen Scoring (Pre) - Cervical Exam Dilation: Exam Deferred - Uterine Contractions Frequency: N/A Duration: N/A Intensity: N/A - Maternal Vital Signs Maternal Temperature: N/A Maternal Blood Pressure: N/A Signs of Preeclampsia: N/A Maternal Respirations: N/A - Maternal Trauma Maternal Trauma: N/A - Assessment - Baby A Baseline FHR: 135 Heart Rate - NICHD Category: Category I (Normal) = 0 - Total Score - Baby A Total Score - Baby A: 0 - Total Score - Baby B Total Score - Baby B: 0 - Total Score - Baby C Total Score - Baby C: 0 - Level of Risk - Baby A Level of Risk - Baby A: Low (0-5) - Level of Risk - Baby B Level of Risk - Baby B: Low (0-5) - Level of Risk - Baby C Level of Risk - Baby C: Low (0-5) Medical Screen Scoring (Post) - Cervical Exam Dilation: Exam Deferred - Uterine Contractions Frequency: N/A Duration: N/A Intensity: N/A - Maternal Vital Signs Maternal Temperature: N/A Maternal Blood Pressure: N/A Signs of Preeclampsia: N/A Maternal Respirations: N/A - Pain Assessment Pain Scale Used: Numeric (1 - 10) Pain Intensity: 0 - Maternal Trauma Maternal Trauma: N/A - Assessment - Baby A Heart Rate: 135 Heart Rate - NICHD Category: Category I (Normal) = 0 NST: Reactive Position: N/A Station: N/A - Total Score Total Score - Baby A: 0 Total Score - Baby B: 0 Total Score - Baby C: 0 - Post Treatment Level of Risk Post Treatment Level of Risk - Baby A: Low (0-5) Post Treatment Level of Risk - Baby B: Low (0-5) Post Treatment Level of Risk - Baby C: Low (0-5) Physician Notification (Post) - Physician Notified Physician Notified Date: 12/24/18 Physician Notified Time: 14:23 Physician/Practitioner Notified:: lor Spoke With: lor New Order Received: Yes - Notification Comment Comment: reported to dr horowitz pt visit to triage with concerns of leaking x2 days, reported negative amnisure, no contractions, reactive nst Disposition - Disposition OB Disposition: Discharge to home Discharge Date: 12/24/18 Discharge Time: 14:24 I agree with the RN Medical Screening Exam: Yes Risk & Benefit of care provided described in d/c instruction: Yes Diagnosis: FALSE LABOR BEFORE 37 COMPLETED WEEKS OF GEST, THIRD TRI
== END 2018-12-24 14:24 | disposition home or self-care (01) ==
LOC: FBPOP 13:40
PROVIDERS: ATTEND Obstetrics & Gynecology
DX: O47.03 False labor before 37 completed weeks of gestation, third trimester (principal); Z3A.34 34 weeks gestation of pregnancy
CPT/HCPCS: 59025; G0463; 99213

== ENCOUNTER 2019-01-10 22:39 | Outpatient (CLI) | payer OTHER ==
[2019-01-10 23:47] VITALS: BP 128/68; PULSE 96; RESP 16; TEMP 96.9
--- NOTE | 2019-01-25 08:23 | P.MSEPDOC ---
Presenting Problems - Arrival Data Date of Arrival on Unit: 01/10/19 Time of Arrival on Unit: 22:39 Mode of Transport: Ambulatory - Complaint OB-Reason for Admission/Chief Complaint: Decreased Movement Comment: Pt stated decreased movement the past couple of days. Medical History - Information : 4 Para: 2 Term: 2 : 0 Abortions: Spontaneous or Elective: 0 Number of Living Children: 2 - Gestational Age Gestational Age by DANYEL (wks/days): 36 Weeks and 3 Days Review of Systems - Review of Systems Constitutional: No problems Breast: No problems ENT: No problems Cardiovascular: No problems Respiratory: No problems Gastrointestinal: No problems Genitourinary: No problems Musculoskeletal: No problems Neurological: No problems Skin: No problems Vital Signs - Temperature Temperature: 96.9 F Temperature Source: Temporal Artery Scan - Pulse Right Brachial Pulse Rate: 96 Pulse Assessment Method: Automatic Cuff - Respirations Respiratory Rate: 16 Oxygen Delivery Method: Standby - Blood Pressure Right Arm Blood Pressure: 128/68 Blood Pressure Mean: 88 Blood Pressure Source: Automatic Cuff Medical Screen Scoring (Pre) - Cervical Exam Dilation: Exam Deferred Effacement: Exam Deferred - Uterine Contractions Frequency: N/A Duration: N/A Intensity: N/A - Maternal Vital Signs Maternal Temperature: N/A Signs of Preeclampsia: N/A Maternal Respirations: N/A - Maternal Trauma Maternal Trauma: N/A - Assessment - Baby A Baseline FHR: 130 Heart Rate - NICHD Category: Category I (Normal) = 0 NST: Reactive - Total Score - Baby A Total Score - Baby A: 0 - Total Score - Baby B Total Score - Baby B: 0 - Total Score - Baby C Total Score - Baby C: 0 - Level of Risk - Baby A Level of Risk - Baby A: Low (0-5) - Level of Risk - Baby B Level of Risk - Baby B: Low (0-5) - Level of Risk - Baby C Level of Risk - Baby C: Low (0-5) Physician Notification (Pre) - Physician Notified Physician Notified Date: 01/10/19 Physician Notified Time: 23:17 New Order Received: Yes - Notification Comment Comment: Pt feeling move multiple times since arriving to triage, reactive nst. Pt sees Dr. Boucher tomorrow as planned. Disposition - Disposition OB Disposition: Discharge to home, Written follow up instructions reviewed Discharge Date: 01/10/19 Discharge Time: 23:17 I agree with the RN Medical Screening Exam: Yes Risk & Benefit of care provided described in d/c instruction: Yes Diagnosis: RELATED CONDITIONS, UNSPECIFIED, THIRD TRIMESTER
== END 2019-01-10 23:17 | disposition home or self-care (01) ==
LOC: FBPOP 22:39
PROVIDERS: ATTEND Obstetrics & Gynecology
DX: O26.93 Pregnancy related conditions, unspecified, third trimester (principal); Z3A.36 36 weeks gestation of pregnancy
CPT/HCPCS: 59025; G0463; 99213

== ENCOUNTER 2019-01-14 18:50 | Outpatient (CLI) | payer OTHER ==
[2019-01-14 21:12] VITALS: BP 121/71; RESP 16; TEMP 98
--- NOTE | 2019-01-16 07:56 | P.MSEPDOC ---
Presenting Problems - Arrival Data Date of Arrival on Unit: 01/14/19 Time of Arrival on Unit: 18:50 Mode of Transport: Ambulatory - Complaint OB-Reason for Admission/Chief Complaint: Headache, Dizziness Medical History - Information : 4 Para: 2 Term: 2 : 0 Abortions: Spontaneous or Elective: 1 Number of Living Children: 2 - Gestational Age Gestational Age by DANYEL (wks/days): 37 Weeks and 2 Days - History Complications: Prior Review of Systems - Review of Systems Constitutional: No problems Breast: No problems ENT: No problems Cardiovascular: No problems Respiratory: No problems Gastrointestinal: No problems Genitourinary: No problems Musculoskeletal: No problems Neurological: No problems Skin: No problems Vital Signs - Temperature Temperature: 98 F Temperature Source: Oral - Respirations Respiratory Rate: 16 Oxygen Delivery Method: Room Air - Blood Pressure Right Arm Blood Pressure: 121/71 Blood Pressure Mean: 87 Blood Pressure Source: Automatic Cuff Medical Screen Scoring (Pre) - Cervical Exam Dilation: Exam Deferred Effacement: Exam Deferred Membranes: Intact - Uterine Contractions Frequency: N/A Duration: N/A Intensity: N/A - Maternal Vital Signs Maternal Temperature: N/A Signs of Preeclampsia: N/A Maternal Respirations: N/A - Maternal Trauma Maternal Trauma: N/A - Assessment - Baby A Baseline FHR: 145 Heart Rate - NICHD Category: Category I (Normal) = 0 NST: Reactive - Total Score - Baby A Total Score - Baby A: 0 - Total Score - Baby B Total Score - Baby B: 0 - Total Score - Baby C Total Score - Baby C: 0 - Level of Risk - Baby A Level of Risk - Baby A: Low (0-5) - Level of Risk - Baby B Level of Risk - Baby B: Low (0-5) - Level of Risk - Baby C Level of Risk - Baby C: Low (0-5) Physician Notification (Pre) - Physician Notified Physician Notified Date: 01/14/19 Physician Notified Time: 19:49 - Notification Comment Comment: Reported to Dr. Mahmood pt complaints of being dizzy and hot after eating dinner and has a head ache rating pain 3/10. Orders to d/c pt home and follow up with Dr. Boucher 01/17. Disposition - Disposition OB Disposition: Discharge to home, Written follow up instructions reviewed Discharge Date: 01/14/19 Discharge Time: 20:00 I agree with the RN Medical Screening Exam: Yes Risk & Benefit of care provided described in d/c instruction: Yes Diagnosis: HEADACHE
== END 2019-01-14 20:00 | disposition home or self-care (01) ==
LOC: FBPOP 18:50
PROVIDERS: ATTEND Obstetrics & Gynecology
DX: O99.89 Other specified diseases and conditions complicating pregnancy, childbirth and the puerperium (principal); R51 Headache; Z3A.37 37 weeks gestation of pregnancy
CPT/HCPCS: 59025; G0463; 99213

== ENCOUNTER 2019-01-28 06:00 | Inpatient (IN) | payer OTHER ==
[2019-01-26 14:40] VITALS: BMI 28.3
[2019-01-28] MEDS ORDERED: CITRIC ACID-SODIUM CITRATE 15 ML CUP PO ONE (06:24)
[2019-01-28] MEDS ORDERED: LACTATED RINGERS 1,000 ML IV ONE (06:24)
[2019-01-28] MEDS ORDERED: CLINDAMYCIN 900 MG in DEXTROSE 5% IN WATER 50 ML IVPB STA ×2 (06:25)
[2019-01-28] MEDS ORDERED: ONDANSETRON 4 MG/2 ML VIAL IVP STA (06:43)
[2019-01-28 06:48] LABS: Basophils # (A) 0.2 k/uL (0-0.2); Basophils % (A) 2 %; Eosinophils # (A) 0.2 k/uL (0-0.7); Eosinophils % (A) 2 %; HCT 29.9 % (34.0-46.0); Lymphocytes # (A) 2.3 k/uL (1.0-4.8); Lymphocytes % (A) 23 %; MCH 26.2 pg (25.0-35.0); MCHC 33.5 g/dL (31.0-37.0); MCV 78.2 fL (80.0-100.0); Mean Platelet Volume 8.5; Monocytes # (A) 0.6 k/uL (0-1.0); Monocytes % (A) 6 %; Neutrophils # (A) 6.5 k/uL (1.3-7.7); Neutrophils % (A) 65 %; Platelet Count 197 k/uL (150-450); RBC 3.82 m/uL (3.80-5.40); RDW 13.9 % (11.5-15.5); WBC 9.9 k/uL (3.8-10.6)
[2019-01-28] MEDS ORDERED: OXYTOCIN 10 UNIT/ML 1 ML VIAL ONE (07:55)
[2019-01-28] MEDS ORDERED: NALBUPHINE 10 MG/ML (1 ML AMP) ONE (07:55)
[2019-01-28] MEDS ORDERED: PHENYLEPHRINE-0.9% NACL SYG 1 MG/10 ML SYRINGE ONE (07:55)
[2019-01-28] MEDS ORDERED: LACTATED RINGERS 1,000 ML BAG IV ONE (07:55)
[2019-01-28] MEDS ORDERED: ONDANSETRON 4 MG/2 ML VIAL ONE (07:55)
[2019-01-28] MEDS ORDERED: MORPHINE SULFATE (PF) 0.3 MG/0.3 ML SYR ONE (07:55)
[2019-01-28] MEDS ORDERED: KETOROLAC 30 MG/ML 1 ML VIAL ONE (07:55)
[2019-01-28] MEDS ORDERED: fentaNYL (PF) 50 MCG/ML 2 ML AMP ONE (07:55)
[2019-01-28] MEDS ORDERED: NALOXONE 0.4 MG/ML 1 ML VIAL IV PRN (08:53)
[2019-01-28] MEDS ORDERED: ZOLPIDEM 5 MG TAB PO PRN (08:53)
[2019-01-28] MEDS ORDERED: METOCLOPRAMIDE 5 MG/ML 2 ML VIAL IVP PRN (08:53)
[2019-01-28] MEDS ORDERED: diphenhydrAMINE 50 MG CAP PO PRN (08:53)
[2019-01-28] MEDS ORDERED: diphenhydrAMINE 25 MG CAP PO PRN (08:53)
[2019-01-28] MEDS ORDERED: diphenhydrAMINE 50 MG/ML 1 ML VIAL IVP PRN ×3 (08:53→12:58)
[2019-01-28] MEDS ORDERED: ONDANSETRON 4 MG/2 ML VIAL IVP PRN (08:53)
[2019-01-28] MEDS ORDERED: LANOLIN CREAM 5 GM TUBE TOPICAL PRN (08:53)
--- NOTE | 2019-01-28 08:56 | P.HPOB ---
History of Present Illness H&P Date: 01/28/19 Chief Complaint: Repeat low transverse 23 yo presents at 39 weeks for repeat low transverse . Review of Systems All systems: negative Constitutional: Denies chills, Denies fever Eyes: denies blurred vision, denies pain Ears, nose, mouth and throat: Denies headache, Denies sore throat Cardiovascular: Denies chest pain, Denies shortness of breath Respiratory: Denies cough Gastrointestinal: Denies abdominal pain, Denies diarrhea, Denies nausea, Denies vomiting Genitourinary: Denies dysuria, Denies hematuria Musculoskeletal: Denies myalgias Integumentary: Denies pruritus, Denies rash Neurological: Denies numbness, Denies weakness Psychiatric: Denies anxiety, Denies depression Endocrine: Denies fatigue, Denies weight change Past Medical History Past Medical History: GERD/Reflux Additional Past Medical History / Comment(s): tachycardia,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 Second she had a vaginal delivery with a shoulder dystocia of a 5#9oz baby. Third was planned . This is her fourth and she has had care with me since the first trimester. O+, abs neg, Rub Imm, Treponemal ab neg, HIV Nr, GBS+. History of Any Multi-Drug Resistant Organisms: None Reported Past Surgical History: Adenoidectomy, Section, Ear Surgery, Tonsillectomy Past Anesthesia/Blood Transfusion Reactions: Previous Problems w/ Anesthesia, Family History of Problems w/ Anesthesia Additional Past Anesthesia/Blood Transfusion Reaction / Comment(s): had severe pain during spinal needle insertion and vomiting with last c section-Very anxiou s for this upcoming . no hx blood transfusion, Dad has severe PONV Past Psychological History: Anxiety Smoking Status: Former smoker Past Alcohol Use History: None Reported Additional Past Alcohol Use History / Comment(s): quit smoking 2015,smoked on and off,vaped for a short period of time Past Drug Use History: None Reported - Past Family History Mother Family Medical History: No Reported History Medications and Allergies Home Medications Medication Instructions Recorded Confirmed Type Xcv-Erbd-Heeck Acid 1 cap PO DAILY 09/08/18 01/28/19 History [-U Capsule (formulary)] Calcium Carbonate [Tums] 500 mg PO DIRECTED PRN 01/26/19 01/28/19 History Allergies Allergy/AdvReac Type Severity Reaction Status Date / Time azithromycin Allergy Unknown Verified 01/28/19 06:22 Penicillins Allergy Rash/Hives Verified 01/28/19 06:22 Milk Containing Products AdvReac Nausea & Verified 01/28/19 06:22 [Dairy] Vomiting & Diarrhea monastat AdvReac Itching Uncoded 01/26/19 14:28 Exam Osteopathic Statement: *. No significant issues noted on an osteopathic structural exam other than those noted in the History and Physical/Consult. Vital Signs Temp Pulse Resp BP Pulse Ox 01/28/19 06:22 98.1 F 93 18 126/82 99 HEart: RRR Lungs: CTAB Abdomen: soft, nontender, gravid Extremeties: neg roseanna's Results Result Diagrams: 01/28/19 06:32 Abnormal Lab Results - Last 24 Hours (Table) 01/28/19 Range/Units 06:32 Hgb 10.0 L (11.4-16.0) gm/dL Hct 29.9 L (34.0-46.0) % MCV 78.2 L (80.0-100.0) fL Assessment and Plan (1) Previous section Current Visit: Yes Status: Acute Code(s): Z98.891 - HISTORY OF UTERINE SCAR FROM PREVIOUS SURGERY SNOMED Code(s): 820872622 (2) History of shoulder dystocia in prior Current Visit: No Status: Resolved Code(s): Z87.59 - PERSONAL HISTORY OF COMP OF PREG, CHLDBRTH AND THE PUERP SNOMED Code(s): 575463434 (3) 39 weeks gestation of Current Visit: No Status: Resolved Code(s): Z3A.39 - 39 WEEKS GESTATION OF SNOMED Code(s): 28080991 Plan: 1. repeat low transverse under spinal anesthesia
--- NOTE | 2019-01-28 08:58 | P.OP ---
Date of Procedure: 01/28/19 Preoperative Diagnosis: 1. at 39 weeks 2. history of shoulder dystocia with previous 3. previous Postoperative Diagnosis: 1. at 39 weeks 2. history of shoulder dystocia with previous 3. previous Procedure(s) Performed: Repeat low transverse Anesthesia: spinal Surgeon: Carolynn Boucher Traffic I Manager #1: Cinthia Mahmood Estimated Blood Loss (ml): 500 IV fluids (ml): 500 Urine output (ml): 500 Pathology: none sent Condition: stable Disposition: floor Operative Findings: Viable female , Apgars 9, 9, weight 7 lbs. 10 oz. Normal uterus, tubes, ovaries. Description of Procedure: Patient was taken to the operating room where spinal anesthesia was found be adequate. She was prepped and draped in normal sterile fashion in dorsal supine position with a leftward tilt. Pfannenstiel skin incision was made the scalpel and carried through to the underlying layer of fascia with the scalpel. Fascia was incised in midline and carried bilaterally with the Mendez scissors. The superior aspect of the fascial incision was grasped with Derik clamps elevated and the underlying rectus muscles dissected off with the Mendez's. Attention was then turned to inferior aspect of same incision which in a similar fashion was grasped tented up and the underlying rectus muscles dissected off with the Mendez's. The rectus muscles were the midline and the peritoneum was identified tented up and entered sharply with the scalpel. The incision was extended superiorly and inferiorly with good visualization of the bladder. The bladder blade was inserted and the vesicouterine peritoneum was incised the Metzenbaums then carried bilaterally and bladder flap created digitally. A low transverse incision was then made on the uterus with the scalpel. This was carried bilaterally and digital manner. 's head delivered atraumatically, nose and mouth bulb suctioned, cord clamped and cut, infant handed off to waiting nurses. Apgars 9,9, weight 7 lbs. 10 oz. Placenta delivered manually, intact with three-vessel cord. The uterus is exteriorized and cleared of all clots and debris. The uterine incision was closed with 0 Vicryl in a running locked fashion. Second layer of the same sutures used in imbricating fashion to obtain excellent hemostasis. Bladder flap was then reapproximated using 2-0 Vicryl in a running fashion. Both ovaries and tubes appeared normal. The uterus was placed back into the abdomen. The peritoneum was reapproximated using 2-0 Vicryl in a running fashion. The muscles were reapproximated using 2- 0 Vicryl in interrupted fashion. The fascia was reapproximated using 0 Vicryl in a running fashion. The subcutaneous tissues closed with 3-0 Vicryl running fashion. The skin was closed todd. Patient tolerated the procedure well, sponge and instrument counts were correct times 2 and she was taken to the recovery room in stable condition.
[2019-01-28] MEDS ORDERED: OXYTOCIN 20 UNITS/1000 ML NS 1,000 ML IV SCH (09:00)
[2019-01-28] MEDS ORDERED: NALBUPHINE 10 MG/ML (1 ML AMP) IV PRN (12:58)
[2019-01-28] MEDS ORDERED: KETOROLAC 30 MG/ML 1 ML VIAL IVP PRN (12:58)
[2019-01-28] MEDS ORDERED: HYDROmorphone 0.5 MG/0.5 ML SYRINGE IVP PRN (12:58)
[2019-01-28] MEDS: KETOROLAC 30 MG/ML 1 ML VIAL IVP PRN ×2 (16:54→23:40)
[2019-01-28] MEDS: SENNOSIDES-DOCUSATE SODIUM 1 EACH TAB PO SCH (20:09)
[2019-01-28] MEDS: ACETAMINOPHEN TAB 325 MG TAB PO PRN (22:07)
[2019-01-29] MEDS: ACETAMINOPHEN TAB 325 MG TAB PO PRN (03:07)
[2019-01-29 07:19] LABS: Basophils # (A) 0.1 k/uL (0-0.2); Basophils % (A) 0 %; Eosinophils # (A) 0.1 k/uL (0-0.7); Eosinophils % (A) 1 %; Lymphocytes # (A) 1.4 k/uL (1.0-4.8); Lymphocytes % (A) 13 %; MCH 26.3 pg (25.0-35.0); MCHC 33.4 g/dL (31.0-37.0); MCV 78.8 fL (80.0-100.0); Monocytes # (A) 0.7 k/uL (0-1.0); Monocytes % (A) 7 %; Neutrophils # (A) 8.7 k/uL (1.3-7.7); Neutrophils % (A) 79 %; Platelet Count 163 k/uL (150-450); RBC 2.35 m/uL (3.80-5.40); RDW 14.4 % (11.5-15.5); WBC 11.1 k/uL (3.8-10.6)
[2019-01-29 07:22] LABS: HCT 18.6 % (34.0-46.0); HGB 6.2 gm/dL (11.4-16.0)
[2019-01-29] MEDS: SENNOSIDES-DOCUSATE SODIUM 1 EACH TAB PO SCH ×2 (07:37→20:05)
[2019-01-29] MEDS: KETOROLAC 30 MG/ML 1 ML VIAL IVP PRN (07:38)
--- NOTE | 2019-01-29 09:31 | P.PNOBGPC ---
Subjective - Subjective Principal diagnosis: Postop day 1: Blood Loss anemia Interval history: Patient is a 23-year-old 3 now status post section 1 day. In reviewing the chart it does not appear that there was any significant issues during section, however this morning her hemoglobin is noted to be 6.2 and she is symptomatic. She complains of headache and reading in her her ears consistent with significant anemia. She is ambulating she has voided and she is tolerating liquids when she has tried take them. She denies bowel movement or passing flatus. On physical exam vital signs overall are stable with a blood pressure of 105/68 however she does have some compensation with the pulse of 115. Her heart is regular but tachycardic her lungs are clear bilaterally and her extremities are without pain with nominal peripheral edema. I did remove her dressing and her incision is clean dry and intact. Her abdomen is otherwise soft she does have incisional and some tenderness around the incision. She also has bowel sounds noted in all 4 quadrants. At this time she relates that her lochia is essentially none. There is no evidence at this time for active internal bleeding although this is a possibility. This is somewhat lessened by the fact that she has good bowel sounds and her uterus now is well below the umbilicus and is firm. I did speak with she and her family about current findings and plan. Will give 1 unit packed red blood cells and repeat her hemoglobin in 4 hours with the expectation is for hemoglobin rices above 7 and she has decrease in her symptoms will plan to continue monitoring. Certainly consideration for a second unit of packed red blood cells can be made particular if she does not get adequate relief of symptoms but has an adequate rise in her hemoglobin for 1 unit. She and I did discuss that I don't have a prior hemoglobin to know what her hemoglobin was late in the , preoperatively it was 10.0 which due to dehydration from not eating all night likely was a little higher than what it really would have been and she did receive probably close to 3000 mL of lactated Ringer's perioperatively intraoperatively and postoperatively also giving some decrease so the entire 3.8 drop in her hemoglobin is unlikely to be all blood loss. I did reassure she and her family that I would stay in the hospital and weight 4 response of blood and see how she was feeling with the understanding that if she continues to have issues or problems or he will is not coming up adequately that there is still a possibility she may need to go to the operating room for a reexploration for internal bleeding. We did also discuss that the downside of that would be that she would bleed going to surgery and at this time did not appear necessary that she was having active internal bleeding. Assessment postop day 1 Plan as above Objective - Vital Signs Latest vital signs: Vital Signs Temp Pulse Resp BP Pulse Ox 01/29/19 09:00 16 01/29/19 07:52 99.0 F 115 H 16 105/68 99 01/29/19 07:00 16 01/29/19 05:00 16 01/29/19 04:00 98.5 F 101 H 16 96/58 01/29/19 03:00 16 01/29/19 01:00 16 01/29/19 00:00 98 F 100 16 109/66 98 01/28/19 23:00 16 01/28/19 21:00 16 01/28/19 20:00 98.2 F 115 H 16 107/68 100 01/28/19 19:00 16 100 01/28/19 16:53 16 01/28/19 15:58 16 01/28/19 15:13 98.0 F 99 16 111/64 98 01/28/19 13:58 17 01/28/19 12:58 16 01/28/19 12:00 97.4 F L 87 16 91/55 01/28/19 11:01 97.6 F 92 16 97/61 01/28/19 10:31 98.0 F 90 16 146/52 01/28/19 10:01 96.9 F L 95 16 109/57 01/28/19 09:46 97.4 F L 97 16 108/60 01/28/19 09:29 98.0 F 96 16 99/63 Intake and Output 01/28/19 01/29/19 01/29/19 22:59 06:59 14:59 Output Total 400 300 Balance -400 -300 Output: Urine 400 300 Other: # Voids 1 1 - Exam Lungs: bilateral: normal Chest: Normal S1, Normal S2 Extremities: Present: normal Abdomen: Present: normal appearance, soft. Absent: distention, tenderness Incision: Present: normal, dry, intact Uterus: Present: normal, firm - Labs Labs: Abnormal Lab Results - Last 24 Hours (Table) 01/28/19 01/29/19 Range/Units 06:32 07:04 WBC 11.1 H (3.8-10.6) k/uL RBC 2.35 L (3.80-5.40) m/uL Hgb 6.2 L* D (11.4-16.0) gm/dL Hct 18.6 L* (34.0-46.0) % MCV 78.8 L (80.0-100.0) fL Neutrophils # 8.7 H (1.3-7.7) k/uL Crossmatch See Detail
[2019-01-29] MEDS: SIMETHICONE 80 MG CHEWABLE PO SCH ×3 (10:03→19:48)
[2019-01-29] MEDS: HYDROcodone/APAP 7.5-325MG 1 EACH TAB PO PRN ×3 (11:56→22:50)
[2019-01-29] MEDS: IBUPROFEN 600 MG TAB PO PRN ×2 (14:10→20:05)
--- NOTE | 2019-01-29 16:54 | P.PN ---
Progress Note - Text 01/29 0612 43-year-old female status post with spinal anesthetic and Duramorph for postop pain control. Patient seen and evaluated this afternoon, patient is comfortable with a vascular incision pain but she has some complains of frontal headache. No complains of photophobia nausea vomiting. I encouraged the patient to drink caffeinated fluids and treat her with by mouth medications. No plans to do epidural blood patch at this time
[2019-01-29] MEDS: LACTATED RINGERS 1,000 ML IV SCH ×2 (19:46→19:47)
[2019-01-29 21:00] LABS: Basophils % (A) 0 %; Eosinophils # (A) 0.1 k/uL (0-0.7); Eosinophils % (A) 1 %; HCT 22.5 % (34.0-46.0); HGB 7.3 gm/dL (11.4-16.0); Lymphocytes # (A) 1.9 k/uL (1.0-4.8); Lymphocytes % (A) 19 %; MCH 26.5 pg (25.0-35.0); MCHC 32.7 g/dL (31.0-37.0); MCV 81.3 fL (80.0-100.0); Mean Platelet Volume 9.2; Monocytes # (A) 0.6 k/uL (0-1.0); Monocytes % (A) 6 %; Neutrophils # (A) 7.2 k/uL (1.3-7.7); Neutrophils % (A) 73 %; Platelet Count 172 k/uL (150-450); Poikilocytosis Slight; RBC 2.77 m/uL (3.80-5.40); RDW 14.7 % (11.5-15.5)
[2019-01-30] MEDS: SIMETHICONE 80 MG CHEWABLE PO SCH
[2019-01-30] MEDS: IBUPROFEN 600 MG TAB PO PRN ×4 (02:02→22:14)
[2019-01-30] MEDS: HYDROcodone/APAP 7.5-325MG 1 EACH TAB PO PRN ×3 (04:57→19:19)
--- NOTE | 2019-01-30 08:34 | P.PNOBGPC ---
Subjective - Subjective Principal diagnosis: Postop day 3 Interval history: Patient seen and evaluated this morning. She relates that at approximately 4:00 to 6:00 she had significant amount of lightheadedness and dizziness her vital signs were stable and she did not show any other outward signs of hypovolemia, however her headache has returned. We will repeat the CBC and while it is noted it was 7.3 last night it is possibly has dropped a little bit may be below 7 again if that is the case will slowly discuss repeating another unit of packed red blood cells. Overall however she looks stable to good. Her incision is clean dry and intact her lochia is reported to be now light her lungs are clear heart is regular extremities are without pain. Minimal edema it at this difficult states the headache is related to her anemia which even benefits still stable at 7 could be or if there is some other alternative vaccination for her headache as it did improve yesterday with [place] prior to even giving her blood. We'll make decisions on further management for today based on patient's condition as well as her CBC this morning. I had not intended or the CBC as it seemed that she was stable and had no evidence of bleeding but we'll verify that this is stable at this time. Objective - Vital Signs Latest vital signs: Vital Signs Temp Pulse Pulse Resp BP BP Pulse Ox 01/30/19 06:15 113/74 01/29/19 23:55 97.9 F 108 H 16 123/69 01/29/19 16:30 98.4 F 112 H 16 119/69 99 01/29/19 16:00 98.2 F 104 H 16 119/69 01/29/19 12:52 98.3 F 99 16 118/74 98 01/29/19 12:42 98.3 F 98 16 110/74 98 01/29/19 12:28 98.1 F 99 16 121/74 100 01/29/19 09:00 16 Intake and Output 01/29/19 01/30/19 01/30/19 22:59 06:59 14:59 Intake Total 310 Balance 310 Intake: Blood Product 310 Rc Pheresis As-3 Unit 310 [id number] Other: # Voids 1 - Exam Lungs: bilateral: normal Chest: Normal S1, Normal S2 Extremities: Present: normal Abdomen: Present: normal appearance, soft. Absent: distention, tenderness Incision: Present: normal, dry, intact Uterus: Present: normal, firm - Labs Labs: Abnormal Lab Results - Last 24 Hours (Table) 01/28/19 01/29/19 Range/Units 06:32 20:40 RBC 2.77 L (3.80-5.40) m/uL Hgb 7.3 L (11.4-16.0) gm/dL Hct 22.5 L (34.0-46.0) % Crossmatch See Detail
[2019-01-30] MEDS: SENNOSIDES-DOCUSATE SODIUM 1 EACH TAB PO SCH ×2 (09:31→19:26)
[2019-01-30 10:36] LABS: Basophils # (A) 0.1 k/uL (0-0.2); Basophils % (A) 1 %; Eosinophils # (A) 0.1 k/uL (0-0.7); Eosinophils % (A) 1 %; HCT 21.1 % (34.0-46.0); Lymphocytes # (A) 1.5 k/uL (1.0-4.8); Lymphocytes % (A) 17 %; MCH 26.7 pg (25.0-35.0); MCHC 33.1 g/dL (31.0-37.0); MCV 80.7 fL (80.0-100.0); Mean Platelet Volume 9.4; Monocytes # (A) 0.6 k/uL (0-1.0); Monocytes % (A) 6 %; Neutrophils # (A) 6.7 k/uL (1.3-7.7); Neutrophils % (A) 73 %; Platelet Count 158 k/uL (150-450); Poikilocytosis Slight; RBC 2.62 m/uL (3.80-5.40); WBC 9.1 k/uL (3.8-10.6)
[2019-01-30] MEDS: FERROUS SULFATE 325 MG TAB PO SCH (16:04)
--- NOTE | 2019-01-30 20:16 | CONS ---
CONSULTATION The patient has been seen and evaluated on 2 separate occasions this morning. The first occasion she and I discussed that her vital signs were stable, but she was feeling lightheaded so a repeat CBC was done to verify stability. Yesterday after her blood transfusion her hemoglobin was noted to be 7.3, and she was feeling improved, particularly after having some food and a little bit of caffeine and a [place]. This morning she had some further lightheadedness and she requested the CBC be drawn to verify stability which is certainly appropriate in that setting. CBC returned at 7.0, which is well within the normal range for both lab differential as well as stability. She has no outward signs nor inward signs of active bleeding. She has no bleeding through her incision. She has no bleeding coming from her vagina. She relates that she has normal flatus and that she has excellent bowel sounds. Her abdomen is soft, is nontender, nondistended. Uterus is firm below the umbilicus. That said, now again later this afternoon she is calling demanding that something else be done as she does not feel like we are doing enough to figure out what may be going on. Her vital signs are stable. Her last blood pressure is 125/75 with a pulse rate of 104. She is resting comfortably in bed. She is ambulating in the halls, ambulating in her room and going to the bathroom without difficulty. I cannot find any significant or specific issue with the treatment and care at this time. At our noon discussion, I did offer her the possibility of blood transfusion. A full discussion was that if she was feeling well, ambulating and voiding and was not lightheaded, she probably could have gone home because her hemoglobin at 7 does show stability, but since she was lightheaded it might be safer to just keep her since she was still feeling very apprehensive and continue to monitor her through the night. If her lightheadedness was becoming more of a problem or she thought was a significant problem, then the only other option would be to give her a blood transfusion again. We did discuss that the blood transfusion would probably make her feel a little bit better, but there are risks involved in blood transfusions and so it is not a completely benign process and she has to weigh whether or not she feels the risk of the blood transfusion is less than how much better she may feel with the blood transfusion. In the explanation that we had previously, I did explain that we are trying to treat her and her vital signs and stability versus trying to take a look at one individual number, i.e. her hemoglobin at 7.0 and trying to treat it that way. She has had no signs or symptoms of hypovolemia. Her blood pressure has been fine on each of the times that I have assessed her and there are no hypotensive episodes listed in the chart. Her tachycardia has slowed from a high of approximately 115 when I saw her yesterday with a hemoglobin of 6.2 to now anywhere between 80 and 100. We have, again, offered her a blood transfusion since that is really the only treatment that may help her symptoms if she is feeling that that is what she wants to do. She has again refused for declined to have a blood transfusion, so my hands are at least relatively tied in what I can offer her beyond that. There is not really any basis for getting any radiologic studies because they are not going to show anything more than likely a small amount of fluid or blood in her belly, which would be normal from a postoperative standpoint. If her vital signs were unstable, she was hypotensive, significant tachycardic, significantly short of breath, tachypneic, any other abnormality that might show that she is becoming or going into hypovolemic shock, either we would get a CT scan or, more likely, we would take her to the operating room and explore to try and figure out where the bleeding is coming from. However, none of these seem to be the case and despite multiple reassurances and multiple episodes of sitting down and discussing with she and her that from a clinical standpoint she is stable, she continues to be upset and wants more done and is trying to figure out why we are not continuing to draw blood. I did explain to her, each time we draw blood there is going to be some blood loss by the very nature of drawing blood and since we only saw a very small drop from her transfusion yesterday to this morning, there really is not an absolute need for drawing blood. A 6 hour H and H serially is not going to give us any more information other than potentially small drops or small rises, which would be normal fluctuation within the body as well as the potential lab error. ASSESSMENT: 1. Postop day 3. 2. Blood loss anemia. 3. Anxiety. PLAN: As above. She certainly is entitled to another blood transfusion if she feels like symptomatically that will help her and make her feel like she is less anxious or less unstable or lightheaded, then I certainly think that is an appropriate treatment plan, but with her vital signs being stable and finding no other areas of abnormality or bleeding she, again, must assume the risk of blood transfusion over receiving the blood to help her feel better. NAJMA / DEZ: [id number] /
[2019-01-31] MEDS: HYDROcodone/APAP 7.5-325MG 1 EACH TAB PO PRN ×2 (01:31→10:36)
[2019-01-31] MEDS: SIMETHICONE 80 MG CHEWABLE PO SCH ×2 (03:48→03:49)
[2019-01-31] MEDS: IBUPROFEN 600 MG TAB PO PRN (06:57)
[2019-01-31 08:47] VITALS: BP 116/65; PULSE 80; RESP 18; TEMP 97.8
--- NOTE | 2019-01-31 09:10 | P.DS ---
Providers Date of admission: 01/28/19 06:00 Expected date of discharge: 01/31/19 Attending physician: Carolynn Boucher Primary care physician: Stated None - Discharge Diagnosis(es) (1) Previous section Current Visit: Yes Status: Acute (2) History of shoulder dystocia in prior Current Visit: No Status: Resolved (3) 39 weeks gestation of Current Visit: No Status: Resolved (4) Status post repeat low transverse section Current Visit: Yes Status: Acute (5) Anemia due to acute blood loss Current Visit: Yes Status: Acute Hospital Course: Patient presented for repeat low transverse . She underwent this procedure without complication. Postoperatively her hemoglobin did drop significantly and she was having symptoms of anemia. She was given 1 unit of packed red blood cells. Her hemoglobin did come up to 7. She does have a mild headache but other than that she is not dizzy with standing, not short of breath, not tachycardic. Her pain is well-controlled she is tolerating her diet and passing flatus. She'll be discharged home post operative day #3 in stable condition to follow-up with me in one week. Plan - Discharge Summary Discharge Rx Participant: No New Discharge Prescriptions: New Ferrous Sulfate [Iron (65 MG Elemental)] 325 mg PO W/LUNCH #30 tab Ibuprofen [Motrin] 600 mg PO Q6HR PRN #30 tab PRN Reason: Mild Pain Or Fever >= 100.5 HYDROcodone/APAP 7.5-325MG [[place] 7.5-325] 1 each PO Q6H PRN #12 tab PRN Reason: Severe Pain No Action Xvj-Pzqj-Locsy Acid [-U Capsule (formulary)] 1 cap PO DAILY Calcium Carbonate [Tums] 500 mg PO DIRECTED PRN PRN Reason: reflux Discharge Medication List [id number] Acid [-U Capsule (formulary)] 1 cap PO DAILY 09/08/18 [History] Calcium Carbonate [Tums] 500 mg PO DIRECTED PRN 01/26/19 [History] Ferrous Sulfate [Iron (65 MG Elemental)] 325 mg PO W/LUNCH #30 tab 01/31/19 [Rx] HYDROcodone/APAP 7.5-325MG [[place] 7.5-325] 1 each PO Q6H PRN #12 tab 01/31/19 [Rx] Ibuprofen [Motrin] 600 mg PO Q6HR PRN #30 tab 01/31/19 [Rx] Follow up Appointment(s)/Referral(s): Carolynn Boucher DO [Doctor of Osteopathic Medicine] - 1 Week Discharge Disposition: HOME SELF-CARE
[2019-01-31] MEDS: SENNOSIDES-DOCUSATE SODIUM 1 EACH TAB PO SCH (10:36)
[2019-01-31] MEDS: FERROUS SULFATE 325 MG TAB PO SCH (10:37)
== END 2019-01-31 12:14 | disposition home or self-care (01) | DRG 787 ==
LOC: 4FBP 06:00
PROVIDERS: ADMIT Obstetrics & Gynecology; ATTEND Obstetrics & Gynecology
PROC: 10D00Z1 Extraction of Products of Conception, Low, Open Approach (ICD-10-PCS; principal; 2019-01-28 08:00)
PROC: 30233N1 Transfusion of Nonautologous Red Blood Cells into Peripheral Vein, Percutaneous Approach (ICD-10-PCS; 2019-01-29)
DX: O34.211 Maternal care for low transverse scar from previous cesarean delivery (principal); D62 Acute posthemorrhagic anemia; O99.02 Anemia complicating childbirth; O99.344 Other mental disorders complicating childbirth; F41.9 Anxiety disorder, unspecified; Z37.0 Single live birth; E86.0 Dehydration; N85.8 Other specified noninflammatory disorders of uterus; O99.62 Diseases of the digestive system complicating childbirth; R51 Headache; K21.9 Gastro-esophageal reflux disease without esophagitis; Z79.899 Other long term (current) drug therapy; Z98.890 Other specified postprocedural states; Z87.891 Personal history of nicotine dependence; Z88.0 Allergy status to penicillin; Z88.8 Allergy status to other drugs, medicaments and biological substances; Z88.1 Allergy status to other antibiotic agents; Z91.011 Allergy to milk products; Z3A.39 39 weeks gestation of pregnancy
CPT/HCPCS: 85025; 86850; 86900; 86901; 86920

== ENCOUNTER 2019-02-01 10:20 | Emergency (ER) | payer OTHER ==
[2019-02-01] MEDS ORDERED: diphenhydrAMINE 50 MG/ML 1 ML VIAL IVP STA (10:29)
[2019-02-01] MEDS ORDERED: METOCLOPRAMIDE 5 MG/ML 2 ML VIAL IVP STA (10:29)
[2019-02-01] MEDS ORDERED: ORPHENADRINE 30 MG/ML 2 ML VIAL IVP STA (10:30)
[2019-02-01 10:33] VITALS: BP 119/81; TEMP 98.2
[2019-02-01] MEDS ORDERED: CAFFEINE-SODIUM BENZOATE 500 MG in SODIUM CHLORIDE 0.9% 1,000 ML IVPB ONE (10:50)
[2019-02-01 11:11] LABS: Anisocytosis Slight; Basophils % (A) 1 %; Eosinophils # (A) 0.3 k/uL (0-0.7); Eosinophils % (A) 4 %; HCT 21.6 % (34.0-46.0); HGB 7.1 gm/dL (11.4-16.0); Hypochromasia Slight; Lymphocytes # (A) 1.1 k/uL (1.0-4.8); Lymphocytes % (A) 12 %; MCHC 32.8 g/dL (31.0-37.0); MCV 82.4 fL (80.0-100.0); Mean Platelet Volume 7.4; Monocytes # (A) 0.4 k/uL (0-1.0); Monocytes % (A) 4 %; Neutrophils # (A) 6.6 k/uL (1.3-7.7); Neutrophils % (A) 78 %; Platelet Count 215 k/uL (150-450); Poikilocytosis Slight; RBC 2.62 m/uL (3.80-5.40); RDW 16.1 % (11.5-15.5); WBC 8.5 k/uL (3.8-10.6)
--- NOTE | 2019-02-01 11:19 | ED ---
Headache HPI - General Chief Complaint: Headache Stated Complaint: headache Time Seen by Provider: 02/01/19 10:21 Source: patient, RN notes reviewed Mode of arrival: ambulatory Limitations: no limitations - History of Present Illness Initial Comments: 23-year-old female presents emergency Department chief complaint of a headache. Patient states is a diffuse frontal headache. Patient states that she developed a headache after having spinal on Thursday for . Patient states that she did not feel well and was evaluated by anesthesiologist, her STUDENT EDUCATION SPECIALIST and was told that it was not a spinal headache. She does state that it is better when she l ays down. She was instructed to increase fluids, caffeine use, Tylenol Motrin. She also states that she had some excessive bleeding during her and which her hemoglobin dropped from 10-6.2. Patient was given 1 transfusion of blood. Patient states that she just does not feel well states is swollen the worse headaches denies fever, chills, neck pain or neck stiffness. - Related Data Home Medications Medication Instructions Recorded Confirmed Cly-Awyh-Pdmio Acid 1 cap PO DAILY 09/08/18 01/28/19 [-U Capsule (formulary)] Calcium Carbonate [Tums] 500 mg PO DIRECTED PRN 01/26/19 01/28/19 Previous Rx's Medication Instructions Recorded Ferrous Sulfate [Iron (65 MG 325 mg PO W/LUNCH #30 tab 01/31/19 Elemental)] HYDROcodone/APAP 7.5-325MG [[place] 1 each PO Q6H PRN #12 tab 01/31/19 7.5-325] Ibuprofen [Motrin] 600 mg PO Q6HR PRN #30 tab 01/31/19 Metoclopramide [Reglan] 10 mg PO TID PRN #15 tab 02/01/19 Allergies Allergy/AdvReac Type Severity Reaction Status Date / Time azithromycin Allergy Unknown Verified 01/28/19 06:22 Penicillins Allergy Rash/Hives Verified 01/28/19 06:22 Milk Containing Products AdvReac Nausea & Verified 01/29/19 12:27 [Dairy] Vomiting & Diarrhea monastat AdvReac Itching Uncoded 01/26/19 14:28 Review of Systems ROS Statement: Those systems with pertinent positive or pertinent negative responses have been documented in the HPI. ROS Other: All systems not noted in ROS Statement are negative. 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 Second she had a vaginal delivery with a shoulder dystocia of a 5#9oz baby. Third was planned . This is her fo urth and she has had care with me since the first trimester. O+, abs neg, Rub Imm, Treponemal ab neg, HIV Nr, GBS+. History of Any Multi-Drug Resistant Organisms: None Reported Past Surgical History: Adenoidectomy, Section, Ear Surgery, Tonsillectomy Past Anesthesia/Blood Transfusion Reactions: No Reported Reaction Past Psychological History: No Psychological Hx Reported Smoking Status: Never smoker Past Alcohol Use History: Rare Past Drug Use History: None Reported - Past Family History Mother Family Medical History: No Reported History General Exam Limitations: no limitations General appearance: alert, in no apparent distress Head exam: Present: atraumatic, normocephalic, normal inspection Eye exam: Present: normal appearance, PERRL, EOMI. Absent: scleral icterus, conjunctival injection, periorbital swelling ENT exam: Present: normal exam, normal oropharynx, mucous membranes moist, TM's normal bilaterally, normal external ear exam Neck exam: Present: normal inspection, full ROM. Absent: tenderness, meningismus, lymphadenopathy Respiratory exam: Present: normal lung sounds bilaterally. Absent: respiratory distress, wheezes, rales, rhonchi, stridor Cardiovascular Exam: Present: regular rate, normal rhythm, normal heart sounds. Absent: systolic murmur, diastolic murmur, rubs, gallop, clicks GI/Abdominal exam: Present: soft, normal bowel sounds. Absent: distended, tenderness, guarding, rebound, rigid Neurological exam: Present: alert, oriented X3, CN II-XII intact, reflexes normal, other (Finger to nose intact). Absent: motor sensory deficit Skin exam: Present: warm, dry, intact, normal color. Absent: rash Course Vital Signs 02/01/19 02/01/19 10:29 11:47 Temperature 98.2 F Pulse Rate 96 98 Respiratory 18 16 Rate Blood Pressure 119/81 O2 Sat by Pulse 98 98 Oximetry - Reevaluation(s) Reevaluation #1: 11/26/19 12:18 Patient states that headache is improving at this time. Medical Decision Making - Medical Decision Making Patient's had a on-and-off headache. Patient does have relief with caffeine, fluids, Benadryl and Reglan. Patient we discharged at this time we discussed possible blood patch patient states she prefers not to do this. Patient will go home and rest and return for any worsening symptoms. - Lab Data Result diagrams: 02/01/19 10:35 02/01/19 10:35 Lab Results 02/01/19 02/01/19 Range/Units 10:35 10:35 WBC 8.5 (3.8-10.6) k/uL RBC 2.62 L (3.80-5.40) m/uL Hgb 7.1 L (11.4-16.0) gm/dL Hct 21.6 L (34.0-46.0) % MCV 82.4 (80.0-100.0) fL MCH 27.0 (25.0-35.0) pg MCHC 32.8 (31.0-37.0) g/dL RDW 16.1 H (11.5-15.5) % Plt Count 215 (150-450) k/uL Neutrophils % 78 % Lymphocytes % 12 % Monocytes % 4 % Eosinophils % 4 % Basophils % 1 % Neutrophils # 6.6 (1.3-7.7) k/uL Lymphocytes # 1.1 (1.0-4.8) k/uL Monocytes # 0.4 (0-1.0) k/uL Eosinophils # 0.3 (0-0.7) k/uL Basophils # 0.0 (0-0.2) k/uL Hypochromasia Slight Poikilocytosis Slight Anisocytosis Slight Sodium 140 (137-145) mmol/L Potassium 3.8 (3.5-5.1) mmol/L Chloride 112 H (98-107) mmol/L Carbon Dioxide 22 (22-30) mmol/L Anion Gap 6 mmol/L BUN 6 L (7-17) mg/dL Creatinine 0.48 L (0.52-1.04) mg/dL Est GFR (CKD-EPI)AfAm >90 (>60 ml/min/1.73 sqM) Est GFR (CKD-EPI)NonAf >90 (>60 ml/min/1.73 sqM) Glucose 76 (74-99) mg/dL Calcium 8.2 L (8.4-10.2) mg/dL Total Bilirubin 0.5 (0.2-1.3) mg/dL AST 56 H (14-36) U/L ALT 51 (9-52) U/L Alkaline Phosphatase 149 H (38-126) U/L Total Protein 4.9 L (6.3-8.2) g/dL Albumin 2.7 L (3.5-5.0) g/dL Disposition Clinical Impression: Headache Disposition: HOME SELF-CARE Condition: Stable Instructions (If sedation given, give patient instructions): Acute Headache (ED) Additional Instructions: Please return to the Emergency Department if symptoms worsen or any other concerns. Prescriptions: Metoclopramide [Reglan] 10 mg PO TID PRN #15 tab PRN Reason: GERD Is patient prescribed a controlled substance at d/c from ED?: No Referrals: None,Stated [Primary Care Provider] - 1-2 days Time of Disposition: 12:19
[2019-02-01 11:24] LABS: ALT 51 U/L (9-52); AST 56 U/L (14-36); African American GFR (CKD) >90 (>60 ml/min/1.73 sqM); Albumin 2.7 g/dL (3.5-5.0); Alkaline Phosphatase 149 U/L (38-126); Anion Gap 6 mmol/L; Blood Urea Nitrogen 6 mg/dL (7-17); Calcium 8.2 mg/dL (8.4-10.2); Carbon Dioxide 22 mmol/L (22-30); Chloride 112 mmol/L (98-107); Glucose 76 mg/dL (74-99); Non-African American GFR(CKD) >90 (>60 ml/min/1.73 sqM); Potassium 3.8 mmol/L (3.5-5.1); Sodium 140 mmol/L (137-145); Total Bilirubin 0.5 mg/dL (0.2-1.3); Total Protein 4.9 g/dL (6.3-8.2)
[2019-02-01 11:53] VITALS: PULSE 98; RESP 16
[2019-02-01] MEDS ORDERED: KETOROLAC 30 MG/ML 1 ML VIAL IVP STA (12:18)
== END 2019-02-01 12:45 | disposition home or self-care (01) ==
LOC: EC 10:20
DX: R51 Headache (principal); Z88.1 Allergy status to other antibiotic agents; Z91.011 Allergy to milk products; Z88.0 Allergy status to penicillin; Z88.8 Allergy status to other drugs, medicaments and biological substances; Z98.890 Other specified postprocedural states
CPT/HCPCS: 36415; 80053; 85025; 96365; 96375 ×3; 99284; J1200; J2765; J1885

== ENCOUNTER 2019-02-05 20:46 | Emergency (ER) | payer OTHER ==
[2019-02-05 21:01] VITALS: RESP 18
[2019-02-05] MEDS ORDERED: IBUPROFEN 600 MG TAB PO STA (21:12)
[2019-02-05] MEDS: SODIUM CHLORIDE 0.9% 500 ML 500 ML IV SCH ×2 (21:31→21:32)
--- NOTE | 2019-02-05 22:08 | CT ---
EXAMINATION TYPE: CT abdomen pelvis w con DATE OF EXAM: 02/05/2019 COMPARISON: None HISTORY: Post op 8 days . Pt fever, c/o LT side pain and painful urniation CT DLP: 687.8 mGycm Automated exposure control for dose reduction was used. TECHNIQUE: Helical acquisition of images was performed from the lung bases through the pelvis. CONTRAST: Performed without Oral Contrast and with IV Contrast, patient injected with 100 mL of Isovue 300. FINDINGS: Lung bases are clear. There is no pleural effusion. Heart size is normal. There is no pericardial eff usion. Liver spleen stomach pancreas gallbladder appear normal. Bile ducts are not dilated. There is no adrenal mass. Kidneys show satisfactory contrast opacification. There is slight fullness of the left and right renal pelvis probably from recent . There is normal excretion on the d elayed images. There is an enlarged uterus from recent . Endometrial cavity measures 3.6 cm. There is a left side pelvic mass that measures 10 x 7 cm with intermediate to higher attenuation. The re is some apparent complex fluid extending into the left paracolic gutter. There is small amount of fat stranding in the left paracolic gutter. Bladder appears normal. There is no inguinal hernia. There is no evidence of a bowel obstruction. There is no sign of free air. There is no ascites. Appen james is not definitely seen. There is no sign of thickened appendix. IMPRESSION: There is a large left side pelvic mass with intermediate and higher attenuation. This cou ld be a combination of abscess and hematoma. Uterus is displaced slightly to the right side. There is enlarged gravid uterus. No free air. No evidence of a bowel obstruction.
[2019-02-05 22:11] LABS: Anisocytosis Slight; Basophils % (A) 0 %; Eosinophils # (A) 0.3 k/uL (0-0.7); Eosinophils % (A) 3 %; HCT 24.3 % (34.0-46.0); HGB 7.7 gm/dL (11.4-16.0); Hypochromasia Slight; Lymphocytes # (A) 1.8 k/uL (1.0-4.8); Lymphocytes % (A) 18 %; MCH 26.2 pg (25.0-35.0); MCHC 31.8 g/dL (31.0-37.0); MCV 82.5 fL (80.0-100.0); Mean Platelet Volume 6.7; Monocytes # (A) 0.5 k/uL (0-1.0); Monocytes % (A) 5 %; Neutrophils # (A) 7.1 k/uL (1.3-7.7); Neutrophils % (A) 72 %; Platelet Count 344 k/uL (150-450); Poikilocytosis Slight; RBC 2.95 m/uL (3.80-5.40); RDW 16.6 % (11.5-15.5); WBC 9.9 k/uL (3.8-10.6)
[2019-02-05 22:19] LABS: ALT 24 U/L (9-52); AST 20 U/L (14-36); African American GFR (CKD) >90 (>60 ml/min/1.73 sqM); Albumin 2.8 g/dL (3.5-5.0); Alkaline Phosphatase 151 U/L (38-126); Anion Gap 6 mmol/L; Blood Urea Nitrogen 10 mg/dL (7-17); Calcium 9.7 mg/dL (8.4-10.2); Carbon Dioxide 22 mmol/L (22-30); Chloride 113 mmol/L (98-107); Glucose 90 mg/dL (74-99); Non-African American GFR(CKD) >90 (>60 ml/min/1.73 sqM); Potassium 3.8 mmol/L (3.5-5.1); Sodium 141 mmol/L (137-145); Total Bilirubin 0.5 mg/dL (0.2-1.3); Total Protein 5.4 g/dL (6.3-8.2)
[2019-02-05 22:22] LABS: INR 0.9 (<1.2); Partial Thromboplastin Time 30.3 sec (22.0-30.0); Prothrombin Time 9.6 sec (9.0-12.0)
[2019-02-05 22:48] LABS: Appearance,Urine Clear (Clear); Bilirubin,Urine Negative (Negative); Blood,Urine Moderate (Negative); Color,Urine Light Yellow; Glucose,Urine (UA) Negative (Negative); Ketones,Urine Negative (Negative); Leukocyte Esterase,Urine Negative (Negative); Mucus,Urine Rare /hpf; Nitrite,Urine Negative (Negative); Protein,Urine Negative (Negative); RBC,Urine 3 /hpf (0-5); Specific Gravity,Urine 1.042 (1.001-1.035); Squamous Epithelial Cell,Urine 1 /hpf (0-4); Urobilinogen,Urine <2.0 mg/dL (<2.0)
--- NOTE | 2019-02-05 22:57 | ED ---
Fever HPI - General Chief Complaint: Fever Stated Complaint: Fever, post Time Seen by Provider: 02/05/19 21:03 Source: patient Mode of arrival: ambulatory Limitations: no limitations - History of Present Illness Initial Comments: 23-year-old female patient presents to the emergency department today for evaluation of left pelvic pain and fever. Patient is postop day #8 after having a with Dr. Boucher. Patient states that over the last 3 days she has been having night sweats. States that she did have low-grade temperatures today between 99 and 100F. States she has been alternating Tylenol and Motrin consistently throughout the day. States that she has developed left pelvic pain over the last couple of days. States it is worse than after surgery. States that she did sleep the floor but didn't feel like it was very vigorous activity. States that she is having light pink to brown vaginal discharge. Denies any significant odor. States she is having painful urination. Denies frequency or urgency. Denies any breast redness, tenderness, or swelling. She is breast- feeding. Patient denies any recent rash, shortness breath, chest pain, nausea, vomiting, diarrhea, constipation, back pain, numbness, tingling, dizziness, weakness, headache, visual changes, or any other complaints. - Related Data Home Medications Medication Instructions Recorded Confirmed Tns-Gvmv-Ujlkv Acid 1 cap PO DAILY 09/08/18 01/28/19 [-U Capsule (formulary)] Calcium Carbonate [Tums] 500 mg PO DIRECTED PRN 01/26/19 01/28/19 Previous Rx's Medication Instructions Recorded Ferrous Sulfate [Iron (65 MG 325 mg PO W/LUNCH #30 tab 01/31/19 Elemental)] HYDROcodone/APAP 7.5-325MG [[place] 1 each PO Q6H PRN #12 tab 01/31/19 7.5-325] Ibuprofen [Motrin] 600 mg PO Q6HR PRN #30 tab 01/31/19 Metoclopramide [Reglan] 10 mg PO TID PRN #15 tab 02/01/19 Allergies Allergy/AdvReac Type Severity Reaction Status Date / Time azithromycin Allergy Unknown Verified 02/05/19 21:02 Penicillins Allergy Rash/Hives Verified 02/05/19 21:02 monastat AdvReac Itching Uncoded 02/05/19 21:02 Review of Systems ROS Statement: Those systems with pertinent positive or pertinent negative responses have been documented in the HPI. ROS Other: All systems not noted in ROS Statement are negative. 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 Second she had a vaginal delivery with a shoulder dyst ocia of a 5#9oz baby. Third was planned . This is her fourth and she has had care with me since the first trimester. O+, abs neg, Rub Imm, Treponemal ab neg, HIV Nr, GBS+. History of Any Multi-Drug Resistant Organisms: None Reported Past Surgical History: Adenoidectomy, Section, Ear Surgery, [place] ctomy Past Anesthesia/Blood Transfusion Reactions: No Reported Reaction Past Psychological History: No Psychological Hx Reported Smoking Status: Never smoker Past Alcohol Use History: Rare Past Drug Use History: None Reported - Past Family History Mother Family Medical History: No Reported History General Exam Limitations: no limitations General appearance: alert, in no apparent distress, other (This is a well- developed, well-nourished adult female patient in no acute distress. Vital signs upon presentation are temperature 99.5F, pulse 109, respirations 18, blood pressure 117/70, pulse ox 99% on room air.) Eye exam: Present: normal appearance, PERRL, EOMI. Absent: scleral icterus, conjunctival injection, periorbital swelling ENT exam: Present: normal exam, normal oropharynx, mucous membranes moist Respiratory exam: Present: normal lung sounds bilaterally. Absent: respiratory distress, wheezes, rales, rhonchi, stridor Cardiovascular Exam: Present: regular rate, normal rhythm, normal heart sounds. Absent: systolic murmur, diastolic murmur, rubs, gallop, clicks GI/Abdominal exam: Present: soft, tenderness (Left pelvic), normal bowel sounds, other (There is horizontal suprapubic incision that is well approximated with glue and tape. No surrounding erythema, no drainage.). Absent: distended, guarding, rebound, rigid Neurological exam: Present: alert, oriented X3, CN II-XII intact Psychiatric exam: Present: normal affect, normal mood Skin exam: Present: warm, dry, intact, normal color. Absent: rash Course Vital Signs 02/05/19 02/05/19 20:57 23:05 Temperature 99.5 F 99.0 F Pulse Rate 109 H 100 Respiratory 18 18 Rate Blood Pressure 117/70 123/82 O2 Sat by Pulse 99 99 Oximetry Medical Decision Making - Medical Decision Making 23-year-old female patient presents to the emergency department today for eval uation of left pelvic pain and fever. Physical examination did reveal left pelvic tenderness. Suprapubic incision is well approximated with no redness or drainage. Labs are reviewed from today and previous admission which show evidence for decreased hemoglobin is 7.7. White blood cell count is normal at 9.9. Urinalysis shows no sign for infection. CT abdomen and pelvis was reviewed and did show a left pelvic mass measuring approximately 10 cm which is concerning for abscess or hematoma. I did discuss the results of the patient's visit with her surgeon Dr. Boucher. Dr. Boucher feels this is more related to hematoma as the patient's white blood cell count is normal. She believes her fever could be from her milk coming in. I did discuss results and findings with the patient. She'll be discharged to follow up with Dr. Boucher in the office. Will not do antibiotics at this time. She is urged to continue monitoring her temperature, taking Tylenol Motrin. Return parameters were discussed in detail. She verbalizes understanding and agrees this plan. - Lab Data Result diagrams: 02/05/19 21:34 02/05/19 21:34 Lab Results 02/05/19 02/05/19 02/05/19 Range/Units 21:34 21:34 21:34 WBC 9.9 (3.8-10.6) k/uL RBC 2.95 L (3.80-5.40) m/uL Hgb 7.7 L (11.4-16.0) gm/dL Hct 24.3 L (34.0-46.0) % MCV 82.5 (80.0-100.0) fL MCH 26.2 (25.0-35.0) pg MCHC 31.8 (31.0-37.0) g/dL RDW 16.6 H (11.5-15.5) % Plt Count 344 (150-450) k/uL Neutrophils % 72 % Lymphocytes % 18 % Monocytes % 5 % Eosinophils % 3 % Basophils % 0 % Neutrophils # 7.1 (1.3-7.7) k/uL Lymphocytes # 1.8 (1.0-4.8) k/uL Monocytes # 0.5 (0-1.0) k/uL Eosinophils # 0.3 (0-0.7) k/uL Basophils # 0.0 (0-0.2) k/uL Hypochromasia Slight Poikilocytosis Slight Anisocytosis Slight PT (9.0-12.0) sec INR (<1.2) APTT (22.0-30.0) sec Sodium 141 (137-145) mmol/L Potassium 3.8 (3.5-5.1) mmol/L Chloride 113 H (98-107) mmol/L Carbon Dioxide 22 (22-30) mmol/L Anion Gap 6 mmol/L BUN 10 (7-17) mg/dL Creatinine 0.45 L (0.52-1.04) mg/dL Est GFR (CKD-EPI)AfAm >90 (>60 ml/min/1.73 sqM) Est GFR (CKD-EPI)NonAf >90 (>60 ml/min/1.73 sqM) Glucose 90 (74-99) mg/dL Plasma Lactic Acid En 1.5 (0.7-2.0) mmol/L Calcium 9.7 (8.4-10.2) mg/dL Total Bilirubin 0.5 (0.2-1.3) mg/dL AST 20 (14-36) U/L ALT 24 (9-52) U/L Alkaline Phosphatase 151 H (38-126) U/L Total Protein 5.4 L (6.3-8.2) g/dL Albumin 2.8 L (3.5-5.0) g/dL Urine Color Urine Appearance (Clear) Urine pH (5.0-8.0) Ur Specific [place] (1.001-1.035) Urine Protein (Negative) Urine Glucose (UA) (Negative) Urine Ketones (Negative) Urine Blood (Negative) Urine Nitrite (Negative) Urine Bilirubin (Negative) Urine Urobilinogen (<2.0) mg/dL Ur Leukocyte Esterase (Negative) Urine RBC (0-5) /hpf Urine WBC (0-5) /hpf Ur Squamous Epith Cells (0-4) /hpf Urine Mucus (None) /hpf 02/05/19 02/05/19 Range/Units 21:34 21:34 WBC (3.8-10.6) k/uL RBC (3.80-5.40) m/uL Hgb (11.4-16.0) gm/dL Hct (34.0-46.0) % MCV (80.0-100.0) fL MCH (25.0-35.0) pg MCHC (31.0-37.0) g/dL RDW (11.5-15.5) % Plt Count (150-450) k/uL Neutrophils % % Lymphocytes % % Monocytes % % Eosinophils % % Basophils % % Neutrophils # (1.3-7.7) k/uL Lymphocytes # (1.0-4.8) k/uL Monocytes # (0-1.0) k/uL Eosinophils # (0-0.7) k/uL Basophils # (0-0.2) k/uL Hypochromasia Poikilocytosis Anisocytosis PT 9.6 (9.0-12.0) sec INR 0.9 (<1.2) APTT 30.3 H (22.0-30.0) sec Sodium (137-145) mmol/L Potassium (3.5-5.1) mmol/L Chloride (98-107) mmol/L Carbon Dioxide (22-30) mmol/L Anion Gap mmol/L BUN (7-17) mg/dL Creatinine (0.52-1.04) mg/dL Est GFR (CKD-EPI)AfAm (>60 ml/min/1.73 sqM) Est GFR (CKD-EPI)NonAf (>60 ml/min/1.73 sqM) Glucose (74-99) mg/dL Plasma Lactic Acid En (0.7-2.0) mmol/L Calcium (8.4-10.2) mg/dL Total Bilirubin (0.2-1.3) mg/dL AST (14-36) U/L ALT (9-52) U/L Alkaline Phosphatase (38-126) U/L Total Protein (6.3-8.2) g/dL Albumin (3.5-5.0) g/dL Urine Color Light Yellow Urine Appearance Clear (Clear) Urine pH 7.0 (5.0-8.0) Ur Specific [place] 1.042 H (1.001-1.035) Urine Protein Negative (Negative) Urine Glucose (UA) Negative (Negative) Urine Ketones Negative (Negative) Urine Blood Moderate H (Negative) Urine Nitrite Negative (Negative) Urine Bilirubin Negative (Negative) Urine Urobilinogen <2.0 (<2.0) mg/dL Ur Leukocyte Esterase Negative (Negative) Urine RBC 3 (0-5) /hpf Urine WBC 1 (0-5) /hpf Ur Squamous Epith Cells 1 (0-4) /hpf Urine Mucus Rare H (None) /hpf - Radiology Data Radiology results: report reviewed, image reviewed CT abdomen and pelvis is obtained. Report was reviewed in its entirety. Impression by Dr. Alaniz shows large left-sided pelvic mass with intermediate and higher attenuation. This could be accommodation of abscess and hematoma. Uterus is displaced slightly to the right side. There is enlarged gravid uterus. No free air. No evidence of a bowel obstruction. Disposition Clinical Impression: Intra-abdominal hematoma, Pelvic pain Disposition: HOME SELF-CARE Condition: Good Instructions (If sedation given, give patient instructions): Fever in Adults (ED), Pelvic Pain in Women (ED), Hematoma (ED) Additional Instructions: Follow-up with Dr. Boucher in the office. Continue Tylenol and Motrin for pain and fever control. Return to the emergency department immediately for any new, worsening, or concerning symptoms. Is patient prescribed a controlled substance at d/c from ED?: No Referrals: Carolynn Boucher DO [Doctor of Osteopathic Medicine] - 1-2 days Time of Disposition: 22:56
[2019-02-05 23:06] VITALS: BP 123/82; PULSE 100; TEMP 99
== END 2019-02-05 23:06 | disposition home or self-care (01) ==
LOC: EC 20:46
DX: O90.89 Other complications of the puerperium, not elsewhere classified (principal); M79.81 Nontraumatic hematoma of soft tissue; R50.9 Fever, unspecified; R61 Generalized hyperhidrosis; N89.8 Other specified noninflammatory disorders of vagina; R30.0 Dysuria; Z88.0 Allergy status to penicillin; Z88.1 Allergy status to other antibiotic agents; Z88.8 Allergy status to other drugs, medicaments and biological substances
CPT/HCPCS: 36415; 80053; 83605; 85025; 85610; 85730; 81001; 87040; 74177; 99284; 96360; 96361; Q9967

== ENCOUNTER 2019-04-19 09:57 | Emergency (ER) | payer OTHER ==
[2019-04-19 10:03] VITALS: TEMP 98.1
[2019-04-19] MEDS ORDERED: LIDOCAINE/EPINEPHR/TETRACAINE 5 ML BOTTLE TOPICAL ONE (10:08)
[2019-04-19] MEDS ORDERED: LIDOCAINE 1% INJ 10MG/ML (20 ML MDV) SQ ONE (10:08)
--- NOTE | 2019-04-19 10:29 | ED ---
Skin/Abscess/FB HPI - General Chief complaint: Skin/Abscess/Foreign Body Stated complaint: Lump in armpit Time Seen by Provider: 04/19/19 10:06 Source: patient Mode of arrival: ambulatory Limitations: no limitations - History of Present Illness Initial comments: 24-year-old female who is currently breast-feeding denies present to the ER for chief complaint of lump in right axilla. Patient states that she has had a lump in the right axilla for the past week has been increasing in size and redness. Patient states is becoming very tender. When symptoms persisted today patient presents emergency department for further evaluation. Patient denies any fever or flulike symptoms, denies other affected areas. Patient denies history of MRSA. Patient appears well on arrival, no acute distress afebrile. - Related Data Home Medications Medication Instructions Recorded Confirmed Tik-Gycj-Okbhm Acid 1 cap PO DAILY 09/08/18 01/28/19 [-U Capsule (formulary)] Calcium Carbonate [Tums] 500 mg PO DIRECTED PRN 01/26/19 01/28/19 Previous Rx's Medication Instructions Recorded Ferrous Sulfate [Iron (65 MG 325 mg PO W/LUNCH #30 tab 01/31/19 Elemental)] HYDROcodone/APAP 7.5-325MG [[place] 1 each PO Q6H PRN #12 tab 01/31/19 7.5-325] Ibuprofen [Motrin] 600 mg PO Q6HR PRN #30 tab 01/31/19 Metoclopramide [Reglan] 10 mg PO TID PRN #15 tab 02/01/19 Cephalexin [Keflex] 500 mg PO Q6HR 7 Days #28 cap 04/19/19 Allergies Allergy/AdvReac Type Severity Reaction Status Date / Time azithromycin Allergy Unknown Verified 02/05/19 21:02 Penicillins Allergy Rash/Hives Verified 02/05/19 21:02 monastat AdvReac Itching Uncoded 02/05/19 21:02 Review of Systems ROS Statement: Those systems with pertinent positive or pertinent negative responses have been documented in the HPI. ROS Other: All systems not noted in ROS Statement are negative. 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 Second she had a vaginal delivery with a shoulder dystocia of a 5#9oz baby. Third was planned . This is her fourth and she has had care with me since the first trimester. O+, abs neg, Rub Imm, Treponemal ab neg, HIV Nr, GBS+. History of Any Multi-Drug Resistant Organisms: None Reported Past Surgical History: Adenoidectomy, Section, Ear Surgery, Tonsillectomy Past Anesthesia/Blood Transfusion Reactions: No Reported Reaction Past Psychological History: No Psychological Hx Reported Smoking Status: Never smoker Past Alcohol Use History: Rare Past Drug Use History: None Reported - Past Family History Mother Family Medical History: No Reported History General Exam - General Exam Comments Initial Comments: General: The patient is awake and alert, in no distress Eye: +3 mm pupils are equal, round and reactive to light, extra-ocular movements are intact. No nystagmus. There is normal conjunctiva bilaterally. No signs of icterus. Cardiovascular: There is a regular rate and rhythm. No murmur, rub or gallop is appreciated. Respiratory: Lungs are clear to auscultation, respirations are non-labored, breath sounds are equal. No wheezes, stridor, rales, or rhonchi. Gastrointestinal: Soft, non-distended, non-tender abdomen without masses or organomegaly noted. There is no rebound or guarding present. Musculoskeletal: Normal ROM, no tenderness. Strength 5/5. Sensation intact. Radial pulses equal bilaterally 2+. Neurological: A&O x 3. CN II-XII intact grossly, There are no obvious motor or sensory deficits. Coordination appears grossly intact. Speech is normal. Skin: Skin is warm and dry and no rashes. 9rth5ym mobile fluctulant area of the right axilla that is tender, there is mild surrounding erythema extending from area, no other lesions noted. Psychiatric: Cooperative, appropriate mood & affect, normal judgment. Limitations: no limitations Course Vital Signs 04/19/19 04/19/19 04/19/19 09:57 10:02 11:02 Temperature 98.1 F Pulse Rate 99 90 Respiratory 17 20 20 Rate Blood Pressure 101/65 103/62 O2 Sat by Pulse 99 99 Oximetry Procedures - Incision & Drainage Consent Obtained: verbal consent Indication: abscess Site: other (right axilla) Anesthetic Used: lidocaine 1% Amount (mLs): 3 I&D Cleaning Method: Iodine Sterile Field Used?: No Scalpel Used: #11 Needle Aspiration Performed?: Yes Irrigation Performed?: No I&D Drainage Obtained: Pus, Blood Patient Tolerated Procedure: well, no complications Medical Decision Making - Medical Decision Making 24yo female presenting today for axilla pain, swelling. Abscess on exam. I&D performed, No complication. Patient and requesting medications/abx that she wont have to dump breast milk. Patient will be initiated in ABX and given strict return parameters, Including increasing swelling pain and redness or development of fevers. Patient verbalized understanding discussed case with provider Dr. Mcdaniel who was agreeable with care plan abx and discharge at this time. Patient is aware of the cross reactivity between penicillins and keflex and is to stop medications and return to ER if develop swelling/rashes from antibiotic. Disposition Clinical Impression: Abscess of right axilla, Pain in right axilla Disposition: HOME SELF-CARE Condition: Good Instructions (If sedation given, give patient instructions): Abscess (ED) Additional Instructions: Please use medication as discussed. Please follow-up with family doctor in the next 2 days. Please return to emergency room if the symptoms increase or worsen or for any other concerns, increasing swelling, redness, pain, fevers. Prescriptions: Cephalexin [Keflex] 500 mg PO Q6HR 7 Days #28 cap Is patient prescribed a controlled substance at d/c from ED?: No Referrals: None,Stated [Primary Care Provider] - 1-2 days [facility] - 1-2 days Time of Disposition: 11:28
[2019-04-19] MEDS ORDERED: CEPHALEXIN 500MG STARTER PACK 4 CAP BTL PO STA (11:27)
[2019-04-19 11:54] VITALS: RESP 20
[2019-04-19 11:55] VITALS: BP 103/62; PULSE 90
== END 2019-04-19 11:56 | disposition home or self-care (01) ==
LOC: EC 09:57
DX: L02.411 Cutaneous abscess of right axilla (principal); Z88.0 Allergy status to penicillin; Z88.1 Allergy status to other antibiotic agents; Z88.8 Allergy status to other drugs, medicaments and biological substances
CPT/HCPCS: 99283; 10060; 87070; 87205; J2001; 87077; 87186

== ENCOUNTER → 2019-04-29 | Outpatient (CLI) | payer OTHER ==
--- NOTE | 2019-05-01 23:08 | US ---
EXAMINATION TYPE: US pelvic complete DATE OF EXAM: 04/29/2019 COMPARISON: NONE CLINICAL HISTORY: 24-year-old female R10.2 pelvic. Post 3 months, cycle just returned at the b eginning of the month, patient having ongoing dull pain within left side of pelvis, , 2 s TECHNIQUE: TA. Transabdominal sonographic images of the pelvis were acquired. No TV at this time Date of LMP: 04/14/2019 FINDINGS: EXAM MEASUREMENTS: Uterus: 9.1 x 5.4 x 3.4 cm Endometrial Stripe: 0.5 cm Right Ovary: 2.3 x 2.9 x 1.1 cm Left Ovary: 2.4 x 2.5 x 1.3 cm 1. Uterus: Anteverted, wnl. scar overlying the anterior lower uterine segment. 2. Endometrium: wnl 3. Right Ovary: follicles measuring less then 1cm seen 4. Left Ovary: follicles measuring less then 1cm seen 5. Bilateral Adnexa: Known left adnexa mass, as seen on prior CT, measuring 5.3 x 4.8 x 5.2cm today and appears nonvascular. Appears adjacent to but discrete from the left ovary. Decreased in size from previous CT where it was measured at 10 x 7cm. 6. Posterior cul-de-sac: wnl IMPRESSION: Heterogeneous round left adnexal mass (separate from the left ovary) measuring 5.3 x 5.2 cm versus up to 10 x [address] of 02/05/2019. Chronic hematoma is a consideration. Ongoing follow -up recommended to ensure continued involution. If this is symptomatic, consider further evaluation w ith female pelvic MRI.
== END | disposition home or self-care (01) ==
LOC: RADUSMAIN 17:44
PROVIDERS: ATTEND Obstetrics & Gynecology
DX: N85.8 Other specified noninflammatory disorders of uterus (principal)
CPT/HCPCS: 76856

== ENCOUNTER → 2019-07-25 | Outpatient (CLI) | payer OTHER ==
--- NOTE | 2019-07-25 13:16 | US ---
EXAMINATION TYPE: US pelvic complete DATE OF EXAM: 07/25/2019 COMPARISON: CT 02/05/2019, US 04/29/2019 CLINICAL HISTORY: HEMATOMA T14.8XXA LT PELVIC AREA. Known hematoma in left adnexa post [place] 2018 TECHNIQUE: . Transabdominal sonographic images of the pelvis were acquired. Date of LMP: 1 day ago EXAM MEASUREMENTS: Uterus: 8.1 x 3.8 x 4.7 cm Endometrial Stripe: 0.9 cm Right Ovary: 2.7 x 2.0 x 1.2 cm Left Ovary: 2.2 x 1.7 x 1.1 cm 1. Uterus: Anteverted wnl 2. Endometrium: wnl 3. Right Ovary: wnl 4. Left Ovary: wnl Spectral, color and waveform doppler imaging shows good arterial and venous flow within the ovaries ; there is no evidence for ovarian torsion. 5. Bilateral Adnexa: In the left adnexa, adjacent to the left ovary there is a hypoechoic area visua lized measuring 3.8 x 4.1 x 4.5 cm. This previously measured 5.3 x 4.8 x 5.2cm on 04/29/2019 6. Posterior cul-de-sac: wnl IMPRESSION: Left adnexal mass persists however is slightly smaller in size. Continued follow-up until resolution is advised.
== END | disposition home or self-care (01) ==
LOC: RADUSWWP 11:14
PROVIDERS: ATTEND Obstetrics & Gynecology
DX: R19.09 Other intra-abdominal and pelvic swelling, mass and lump (principal)
CPT/HCPCS: 76856

== ENCOUNTER → 2020-05-08 | Outpatient (CLI) | payer OTHER | END | disposition home or self-care (01) | LOC: LABWHC1 08:40 | PROVIDERS: ATTEND Obstetrics & Gynecology | DX: N92.6 Irregular menstruation, unspecified (principal) | CPT/HCPCS: 36415; 84702 ==

== ENCOUNTER 2020-11-14 15:14 | Emergency (ER) | payer OTHER ==
[2020-11-14 16:32] LABS: Appearance,Urine Clear (Clear); Basophils % (A) 0 %; Bilirubin,Urine Negative (Negative); Blood,Urine Negative (Negative); Color,Urine Colorless; Eosinophils # (A) 0.2 k/uL (0-0.7); Eosinophils % (A) 3 %; Glucose,Urine (UA) Negative (Negative); HCT 38.9 % (34.0-46.0); HGB 13.5 gm/dL (11.4-16.0); Ketones,Urine Negative (Negative); Leukocyte Esterase,Urine Negative (Negative); Lymphocytes # (A) 1.9 k/uL (1.0-4.8); Lymphocytes % (A) 29 %; MCH 26.8 pg (25.0-35.0); MCHC 34.7 g/dL (31.0-37.0); MCV 77.2 fL (80.0-100.0); Mean Platelet Volume 8.1; Monocytes # (A) 0.3 k/uL (0-1.0); Monocytes % (A) 4 %; Neutrophils % (A) 62 %; Nitrite,Urine Negative (Negative); PH, Urine 6.5 (5.0-8.0); Platelet Count 198 k/uL (150-450); Protein,Urine Negative (Negative); RBC 5.04 m/uL (3.80-5.40); RDW 13.1 % (11.5-15.5); Specific Gravity,Urine 1.003 (1.001-1.035); Urobilinogen,Urine <2.0 mg/dL (<2.0); WBC 6.5 k/uL (3.8-10.6)
[2020-11-14 16:47] LABS: ALT 11 U/L (4-34); AST 23 U/L (14-36); African American GFR (CKD) >90 (>60 ml/min/1.73 sqM); Albumin 4.4 g/dL (3.5-5.0); Alkaline Phosphatase 61 U/L (38-126); Anion Gap 10 mmol/L; Blood Urea Nitrogen 7 mg/dL (7-17); Calcium 10.2 mg/dL (8.4-10.2); Carbon Dioxide 24 mmol/L (22-30); Chloride 104 mmol/L (98-107); Glucose 84 mg/dL (74-99); Non-African American GFR(CKD) >90 (>60 ml/min/1.73 sqM); Potassium 3.8 mmol/L (3.5-5.1); Sodium 138 mmol/L (137-145); Total Bilirubin 0.3 mg/dL (0.2-1.3); Total Protein 7.3 g/dL (6.3-8.2)
--- NOTE | 2020-11-14 17:27 | ED ---
Female Urogenital HPI - General Chief complaint: Vaginal Bleeding Stated complaint: 9 Weeks Preg, Vaginal Bleeding Time Seen by Provider: 11/14/20 15:44 Source: patient Mode of arrival: ambulatory Limitations: no limitations - History of Present Illness Initial comments: Patient is a 25-year-old female, currently 9 weeks , presenting to emergency Department with complaints of some mild vaginal bleeding that started yesterday and again today. She describes it as dark brown in nature yesterday but then bright red today when she sat down to have a bowel movement. She is , DIRECTOR OF REVENUE is Dr. Boucher. She does have history of subchorionic hemorrhage in the past. She denies any abdominal pain. She admits to history of 2 C- sections, no other abdominal surgeries. She denies any fevers or chills, no chest pain or shortness of breath. She has no further complaints at this time. Upon arrival to the ER, her vitals are stable. - Related Data Home Medications Medication Instructions Recorded Confirmed Cor-Yowo-Lexgk Acid 1 cap PO DAILY 09/08/18 11/14/20 [-U Capsule (formulary)] Allergies Allergy/AdvReac Type Severity Reaction Status Date / Time azithromycin Allergy Unknown Verified 11/14/20 16:37 Penicillins Allergy Rash/Hives Verified 11/14/20 16:37 monastat AdvReac Itching Uncoded 11/14/20 15:38 Review of Systems ROS Statement: Those systems with pertinent positive or pertinent negative responses have been documented in the HPI. ROS Other: All systems not noted in ROS Statement are negative. 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 Second she had a vaginal delivery with a shoulder dystocia of a 5#9oz baby. Third was planned . This is her fourth and she has had care with me since the first trimester. O+, abs neg, Rub Imm, Treponemal ab neg, HIV Nr, GBS+. History of Any Multi-Drug Resistant Organisms: None Reported Past Surgical History: Adenoidectomy, Section, Ear Surgery, Tonsillectomy Past Anesthesia/Blood Transfusion Reactions: No Reported Reaction Past Psychological History: No Psychological Hx Reported Smoking Status: Never smoker Past Alcohol Use History: None Reported Past Drug Use History: None Reported - Past Family History Mother Family Medical History: No Reported History General Exam - General Exam Comments Initial Comments: GENERAL: Patient is well-developed and well-nourished. Patient is nontoxic and in no acute distress. HEAD: Atraumatic, normocephalic. EYES: Pupils equal round and reactive to light, extraocular movements intact, sclera anicteric, conjunctiva are normal. Eyelids were unremarkable. ENT: Nares patent, oropharynx clear without exudates. Moist mucous membranes. NECK: Normal range of motion, supple without lymphadenopathy or JVD. LUNGS: Unlabored respirations. Breath sounds clear to auscultation bilaterally and equal. No wheezes rales or rhonchi. HEART: Regular rate and rhythm without murmurs, rubs or gallops. ABDOMEN: Soft, nontender, normoactive bowel sounds. No guarding, no rebound. No masses appreciated. : Deferred MUSCULOSKELETAL: Normal extremities with adequate strength and normal range of motion, no pitting or edema. No clubbing or cyanosis. NEUROLOGICAL: Patient is alert and oriented x 3. PSYCH: Normal mood, normal affect. SKIN: Warm, Dry, normal turgor, no rashes or lesions noted. Limitations: no limitations Course Vital Signs 11/14/20 15:36 Temperature 98.3 F Pulse Rate 95 Respiratory 18 Rate Blood Pressure 112/67 O2 Sat by Pulse 100 Oximetry Medical Decision Making - Medical Decision Making Patient is a 25-year-old female, currently 9 weeks presenting with vaginal bleeding yesterday and today. It is minimal, she does have history of subchorionic bleed in the past. , DIRECTOR OF REVENUE is Dr. Boucher. No abdominal pain, vitals are stable. Labs are all within normal limits, hCG Quant is 148,00 0, urine shows no evidence of infection. Ultrasound today shows a single live IUP with estimated gestational age of 8 weeks and 5 days, heart rate is in the 160s, there is a small subchorionic hemorrhage present, otherwise no acute abnormality. Blood type is O+. I discussed his findings with the patient. Patient will follow up with her DIRECTOR OF REVENUE. She is stable for discharge and she is in agreement with this plan of care. Case discussed Dr. Mcdonald. - Lab Data Result diagrams: 11/14/20 16:19 11/14/20 16:19 Lab Results 11/14/20 11/14/20 11/14/20 Range/Units 16:19 16:19 16:19 WBC 6.5 (3.8-10.6) k/uL RBC 5.04 (3.80-5.40) m/uL Hgb 13.5 (11.4-16.0) gm/dL Hct 38.9 (34.0-46.0) % MCV 77.2 L (80.0-100.0) fL MCH 26.8 (25.0-35.0) pg MCHC 34.7 (31.0-37.0) g/dL RDW 13.1 (11.5-15.5) % Plt Count 198 (150-450) k/uL MPV 8.1 Neutrophils % 62 % Lymphocytes % 29 % Monocytes % 4 % Eosinophils % 3 % Basophils % 0 % Neutrophils # 4.0 (1.3-7.7) k/uL Lymphocytes # 1.9 (1.0-4.8) k/uL Monocytes # 0.3 (0-1.0) k/uL Eosinophils # 0.2 (0-0.7) k/uL Basophils # 0.0 (0-0.2) k/uL Sodium 138 (137-145) mmol/L Potassium 3.8 (3.5-5.1) mmol/L Chloride 104 (98-107) mmol/L Carbon Dioxide 24 (22-30) mmol/L Anion Gap 10 mmol/L BUN 7 (7-17) mg/dL Creatinine 0.42 L (0.52-1.04) mg/dL Est GFR (CKD-EPI)AfAm >90 (>60 ml/min/1.73 sqM) Est GFR (CKD-EPI)NonAf >90 (>60 ml/min/1.73 sqM) Glucose 84 (74-99) mg/dL Calcium 10.2 (8.4-10.2) mg/dL Total Bilirubin 0.3 (0.2-1.3) mg/dL AST 23 (14-36) U/L ALT 11 (4-34) U/L Alkaline Phosphatase 61 (38-126) U/L Total Protein 7.3 (6.3-8.2) g/dL Albumin 4.4 (3.5-5.0) g/dL HCG, Quant 489551.0 mIU/mL Urine Color Colorless Urine Appearance Clear (Clear) Urine pH 6.5 (5.0-8.0) Ur Specific Mcdade 1.003 (1.001-1.035) Urine Protein Negative (Negative) Urine Glucose (UA) Negative (Negative) Urine Ketones Negative (Negative) Urine Blood Negative (Negative) Urine Nitrite Negative (Negative) Urine Bilirubin Negative (Negative) Urine Urobilinogen <2.0 (<2.0) mg/dL Ur Leukocyte Esterase Negative (Negative) Blood Type Blood Type Recheck Bld Type Recheck Status 11/14/20 Range/Units 16:19 WBC (3.8-10.6) k/uL RBC (3.80-5.40) m/uL Hgb (11.4-16.0) gm/dL Hct (34.0-46.0) % MCV (80.0-100.0) fL MCH (25.0-35.0) pg MCHC (31.0-37.0) g/dL RDW (11.5-15.5) % Plt Count (150-450) k/uL MPV Neutrophils % % Lymphocytes % % Monocytes % % Eosinophils % % Basophils % % Neutrophils # (1.3-7.7) k/uL Lymphocytes # (1.0-4.8) k/uL Monocytes # (0-1.0) k/uL Eosinophils # (0-0.7) k/uL Basophils # (0-0.2) k/uL Sodium (137-145) mmol/L Potassium (3.5-5.1) mmol/L Chloride (98-107) mmol/L Carbon Dioxide (22-30) mmol/L Anion Gap mmol/L BUN (7-17) mg/dL Creatinine (0.52-1.04) mg/dL Est GFR (CKD-EPI)AfAm (>60 ml/min/1.73 sqM) Est GFR (CKD-EPI)NonAf (>60 ml/min/1.73 sqM) Glucose (74-99) mg/dL Calcium (8.4-10.2) mg/dL Total Bilirubin (0.2-1.3) mg/dL AST (14-36) U/L ALT (4-34) U/L Alkaline Phosphatase (38-126) U/L Total Protein (6.3-8.2) g/dL Albumin (3.5-5.0) g/dL HCG, Quant mIU/mL Urine Color Urine Appearance (Clear) Urine pH (5.0-8.0) Ur Specific Mcdade (1.001-1.035) Urine Protein (Negative) Urine Glucose (UA) (Negative) Urine Ketones (Negative) Urine Blood (Negative) Urine Nitrite (Negative) Urine Bilirubin (Negative) Urine Urobilinogen (<2.0) mg/dL Ur Leukocyte Esterase (Negative) Blood Type O Positive Blood Type Recheck O Pos Bld Type Recheck Status No Disposition Clinical Impression: Subchorionic hemorrhage in first trimester Disposition: HOME SELF-CARE Condition: Stable Instructions (If sedation given, give patient instructions): Subchorionic H emorrhage (ED) Additional Instructions: Please return to the Emergency Department if symptoms worsen or any other concerns. Please follow up with your DIRECTOR OF REVENUE as discussed. Is patient prescribed a controlled substance at d/c from ED?: No Referrals: Sandip Aldana MD [Primary Care Provider] - 1-2 days Carolynn Boucher DO [Doctor of Osteopathic Medicine] - 1-2 days Time of Disposition: 18:29
--- NOTE | 2020-11-14 17:54 | US ---
EXAMINATION TYPE: Transabdominal DATE OF EXAM: 11/14/2020 5:21 PM COMPARISON: NONE CLINICAL HISTORY: 9wks preg, bleeding. spotting EXAM PERFORMED: Transabdominal (TA) EXAM MEASUREMENTS: GESTATIONAL AGE / DATING Physician Established: Not yet established Dates by LMP: (8 weeks/6 days) EDC: 06/20/21 Dates by First Scan: No previous this is first scan Dates by Current Scan for: (8 weeks/5 days) EDC: 06/21/21 MATERNAL ANATOMY Uterus: 11.8 x 5.9 x 7.2cm Right Ovary: 2.8 x 1.6 x 2.5cm Left Ovary: 2.6 x 2.0 x 2.4cm Post CDS / Adnexa: appears wnl Presence of free fluid: no Presence of corpus luteal cyst: yes. complex area right ovary = 2.0 x 1.4 x 1.9cm and hypoechoic area left ovary = 1.7 x 1.9 x 1.8cm Presence of subchorionic bleed: yes, inferior to GS = 2.9 x 1.4 x 4.4cm GESTATION / SURVEY CRL: 2.0cm (8 weeks/5 days) Yolk Sac (normal less than 6mm): 0.4 Heart Rate: 163 bpm Rhythm: Normal IUP: Viable IUP Date of LMP: 09/13/20 Beta HcG (if available): Not available at this time IMPRESSION: Single live intrauterine of estimated gestational age of 8 weeks 5 days. Small subchorionic hemorrhage present. Otherwise no acute abnormality.
[2020-11-14 18:44] VITALS: BP 123/65; PULSE 75; RESP 20; TEMP 98.2
== END 2020-11-14 18:40 | disposition home or self-care (01) ==
LOC: EC 15:14
DX: O20.8 Other hemorrhage in early pregnancy (principal); Z3A.08 8 weeks gestation of pregnancy
CPT/HCPCS: 36415; 76801; 80053; 81003; 84702; 85025; 86900; 86901; 99284

== ENCOUNTER 2021-02-19 15:53 | Outpatient (CLI) | payer OTHER ==
[2021-02-19 17:53] VITALS: BP 110/59; PULSE 96; RESP 16; TEMP 98
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
== END 2021-02-19 17:40 | disposition home or self-care (01) ==
LOC: FBPOP 15:53
PROVIDERS: ATTEND Obstetrics & Gynecology
DX: Z04.3 Encounter for examination and observation following other accident (principal); Z88.1 Allergy status to other antibiotic agents; Z88.0 Allergy status to penicillin; Z88.8 Allergy status to other drugs, medicaments and biological substances
CPT/HCPCS: 76805; G0463; 99213

== ENCOUNTER → 2021-03-05 | Outpatient (CLI) | payer OTHER ==
[2021-03-05 10:46] LABS: HCT 33.1 % (37.2-46.3); HGB 10.6 g/dL (12.0-15.0); MCV 84.2 fL (80.0-97.0); Mean Platelet Volume 11.4 fL (9.5-12.2); Platelet Count 151 X 10*3/uL (140-440); RBC 3.93 X 10*6/uL (4.10-5.20); WBC 6.31 X 10*3/uL (4.50-10.00)
== END | disposition home or self-care (01) ==
LOC: LABWHC1 07:01
PROVIDERS: ATTEND Obstetrics & Gynecology
DX: Z34.82 Encounter for supervision of other normal pregnancy, second trimester (principal); Z3A.00 Weeks of gestation of pregnancy not specified
CPT/HCPCS: 36415; 82950; 85027

== ENCOUNTER 2021-03-19 11:59 | Outpatient (CLI) | payer OTHER ==
[2021-03-19 13:07] VITALS: BP 104/59; PULSE 105; RESP 16; TEMP 98.6
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
== END 2021-03-19 12:58 | disposition home or self-care (01) ==
LOC: FBPOP 11:59
PROVIDERS: ATTEND Obstetrics & Gynecology
DX: O47.02 False labor before 37 completed weeks of gestation, second trimester (principal); Z3A.26 26 weeks gestation of pregnancy; Z88.1 Allergy status to other antibiotic agents; Z88.0 Allergy status to penicillin
CPT/HCPCS: 59025; 84112; 99213

== ENCOUNTER 2021-05-10 22:09 | Outpatient (CLI) | payer OTHER ==
[2021-05-10 23:35] VITALS: BP 122/63; PULSE 112; RESP 16; TEMP 96.8
--- NOTE | 2021-05-11 07:05 | P.MSEPDOC ---
Presenting Problems - Arrival Data Date of Arrival on Unit: 05/10/21 Time of Arrival on Unit: 22:09 Mode of Transport: Ambulatory - Complaint OB-Reason for Admission/Chief Complaint: Decreased Movement Comment: Patient arrives to [facility] with c/o decreased movement but reports feeling. baby move while walking up here. Patient also reports feeling tailbone pain that comes. and goes similar to a contraction. Medical History - Information : 5 Para: 3 Term: 3 : 0 Abortions: Spontaneous or Elective: 0 Number of Living Children: 3 - Gestational Age Gestational Age by DANYEL (wks/days): 34 Weeks and 1 Days Review of Systems - Review of Systems Constitutional: No problems Breast: No problems ENT: No problems Cardiovascular: No problems Respiratory: No problems Gastrointestinal: No problems Genitourinary: No problems Musculoskeletal: No problems Neurological: No problems Skin: No problems Vital Signs - Temperature Temperature: 96.8 F Temperature Source: Oral - Pulse Right Brachial Pulse Rate: 112 Pulse Assessment Method: Pulse Oximetry - Respirations Respiratory Rate: 16 Oxygen Delivery Method: Room Air O2 Sat by Pulse Oximetry: 99 - Blood Pressure Right Arm Blood Pressure: 122/63 Blood Pressure Mean: 82 Blood Pressure Source: Automatic Cuff Medical Screen Scoring - Cervical Exam Dilation (cm): 1 Membranes: Intact - Uterine Contractions Frequency From (mins): 0 - Assessment - Baby A Baseline FHR: 135 Heart Rate - NICHD Category: Category I (Normal) NST: Reactive Physician Notification - Physician Notified Physician Notified Date: 05/10/21 Physician Notified Time: 23:04 Physician: Gabriel Humphries New Order Received: Yes (discharge) - Notification Comment Comment: Dr. Humphries called with report. Patient presents to [facility] with c/o decreased movement and tailbone pain. NST reactive, cervical exam 1/thick/high with NO contractions per palpation toco or patient. Patient approved for discharge and keep next scheduled appointment. Maternal Triage Index - Maternal Triage Index Presenting for scheduled procedure w/no complaint: No - Stat/Priority 1 Stat Priority 1: No - Urgent/Priority 2 Urgent Priority 2: Yes Provider Notified: Gabriel Humphries Provider Notified Time: 23:04 Criteria Met for Priority 2: Dr. Humphries called with report. Patient presents to [facility] with c/o decreased. movement and tailbone pain. NST reactive, cervical exam 1/thick/high with NO. contractions per palpation toco or patient. Patient approved for discharge and keep next. scheduled appointment. Disposition - Disposition OB Disposition: Discharge to home Discharge Date: 05/10/21 Discharge Time: 23:09 I agree with the RN Medical Screening Exam: Yes Case reviewed; plan agreed upon as documented in EMR&OBIX.: Yes Diagnosis: DECREASED MOVEMENTS, THIRD TRIMESTER, FETUS 1 (Patient presents with 2 days of decreased movement. She informed me that she has been feeling baby move but not as much as usual. Nonstress test is reactive. She is having perceivable movement here. This point there is no evidence of mat ernal or compromise for discharge home follow up as scheduled.)
== END 2021-05-10 23:09 ==
LOC: FBPOP 22:09
PROVIDERS: ATTEND Obstetrics & Gynecology
DX: O36.8130 Decreased fetal movements, third trimester, not applicable or unspecified (principal); Z3A.34 34 weeks gestation of pregnancy; Z88.1 Allergy status to other antibiotic agents; Z88.0 Allergy status to penicillin
CPT/HCPCS: 59025; 99213